=== PATIENT | female | born 1980 | race Caucasian/White ===

== ENCOUNTER 2017-07-26 09:44 | Emergency (ER) | payer MEDICARE, OTHER ==
[2017-07-26 09:56] VITALS: RESP 18
[2017-07-26 10:16] LABS: Appearance,Urine Cloudy (Clear); Bilirubin,Urine Negative (Negative); Blood,Urine Negative (Negative); Color,Urine Yellow; Glucose,Urine (UA) Negative (Negative); Ketones,Urine Negative (Negative); Leukocyte Esterase,Urine Large (Negative); Mucus,Urine Moderate /hpf; Nitrite,Urine Negative (Negative); PH, Urine 5.5 (5.0-8.0); Protein,Urine Negative (Negative); RBC,Urine 1 /hpf (0-5); Squamous Epithelial Cell,Urine 3 /hpf (0-4); WBC,Urine 20 /hpf (0-5)
--- NOTE | 2017-07-26 10:32 | ED ---
Female Urogenital HPI - General Chief complaint: Urogenital Stated complaint: female Time Seen by Provider: 07/26/17 10:11 Source: family Mode of arrival: ambulatory Limitations: no limitations - History of Present Illness Initial comments: 36-year-old female patient presents the emergency department today for evaluation of pelvic pain, low back pain, and vaginal burning. Patient states that this is going on for approximately one month. Patient states that she was in to urgent care approximately a week ago and was diagnosed with a possible urinary tract infection. They later called her and told her her culture was negative and a stop take an antibiotic. Patient states that she has continued to have symptoms including dysuria and frequency so she continued the antibiotic. Patient denies any vaginal bleeding or discharge. She denies any nausea or vomiting. Denies any constipation or diarrhea. Patient states that she hasn't been sexually active since February. Patient does have a history of hysterectomy with mesh placed for prolapse. Patient denies any recent rash, shortness breath, chest pain, nausea, numbness, tingling, dizziness, weakness, hematuria, dysuria, urinary urgency, urinary frequency, headache, visual changes , or any other complaints. - Related Data Previous Rx's Medication Instructions Recorded Ibuprofen [Motrin] 600 mg PO Q8HR PRN #30 tab 07/26/17 Allergies Allergy/AdvReac Type Severity Reaction Status Date / Time codeine Allergy Unknown Verified 07/26/17 09:49 Review of Systems ROS Statement: Those systems with pertinent positive or pertinent negative responses have been documented in the HPI. ROS Other: All systems not noted in ROS Statement are negative. Past Medical History Additional Past Medical History / Comment(s): lyme disease, degenerative disc disease, hiatal hernia, IBS History of Any Multi-Drug Resistant Organisms: None Reported Past Surgical History: Back Surgery, Cholecystectomy, Hysterectomy, Orthopedic Surgery, Tonsillectomy Additional Past Surgical History / Comment(s): left third didgit, left knee Past Psychological History: Depression Smoking Status: Current every day smoker Past Alcohol Use History: None Reported Past Drug Use History: None Reported General Exam Limitations: no limitations General appearance: alert, in no apparent distress, other (Physical well- developed, well-nourished adult female patient in no acute distress. Vital signs upon presentation are temperature 97.1F, pulse 112, respirations 18, blood pressure 127/99, pulse ox 98% on room air.) Eye exam: Present: normal appearance, PERRL, EOMI. Absent: scleral icterus, conjunctival injection, periorbital swelling ENT exam: Present: normal exam, normal oropharynx, mucous membranes moist Respiratory exam: Present: normal lung sounds bilaterally. Absent: respiratory distress, wheezes, rales, rhonchi, stridor Cardiovascular Exam: Present: normal rhythm, tachycardia, normal heart sounds. Absent: systolic murmur, diastolic murmur, rubs, gallop, clicks GI/Abdominal exam: Present: soft, normal bowel sounds. Absent: distended, tenderness, guarding, rebound, rigid External exam: Present: erythema. Absent: normal external exam Speculum exam: Present: vaginal discharge (Thin white) By manual exam: Present: adnexal tenderness, other (Absent cervix) Back exam: Present: normal inspection. Absent: CVA tenderness (R), CVA tenderness (L) Neurological exam: Present: alert, oriented X3, CN II-XII intact Psychiatric exam: Present: normal affect, normal mood Skin exam: Present: warm, dry, intact, normal color. Absent: rash Course Vital Signs 07/26/17 09:49 Temperature 97.1 F L Pulse Rate 112 H Respiratory 18 Rate Blood Pressure 127/99 O2 Sat by Pulse 98 Oximetry Medical Decision Making - Medical Decision Making 36-year-old female patient presents to the emergency department today for evaluation of pelvic pain and low back pain as well as some vaginal burning. Physical examination was relatively unremarkable. Abdomen was soft and nontender. No CVA tenderness. Speculum and bimanual examination did reveal some bilateral adnexal tenderness, and a small amount of thin white discharge. No odor was noted. Labs reviewed and did reveal possible urinary tract infection with cloudy appearance, large leukocyte esterase, 20 white blood cells , moderate mucus. Patient does have Cipro at home, I urged her to continue taking this. Urine culture will be performed. Recent vaginal cultures. She was informed regarding ultrasound results and instructed to follow-up with OB/ [facility]IENT SOLUTIONS SPECIALIST for further evaluation. She was given referral. Return parameters discussed in detail. She verbalizes understanding and agrees this plan. - Lab Data Result diagrams: 07/26/17 10:40 07/26/17 10:40 Lab Results 07/26/17 07/26/17 07/26/17 Range/Units 10:00 10:40 10:40 WBC 7.5 (3.8-10.6) k/uL RBC 4.48 (3.80-5.40) m/uL Hgb 14.0 (11.4-16.0) gm/dL Hct 41.4 (34.0-46.0) % MCV 92.5 (80.0-100.0) fL MCH 31.3 (25.0-35.0) pg MCHC 33.8 (31.0-37.0) g/dL RDW 12.3 (11.5-15.5) % Plt Count 172 (150-450) k/uL Neutrophils % 52 % Lymphocytes % 35 % Monocytes % 4 % Eosinophils % 6 % Basophils % 0 % Neutrophils # 3.9 (1.3-7.7) k/uL Lymphocytes # 2.7 (1.0-4.8) k/uL Monocytes # 0.3 (0-1.0) k/uL Eosinophils # 0.5 (0-0.7) k/uL Basophils # 0.0 (0-0.2) k/uL Sodium 142 (137-145) mmol/L Potassium 3.5 (3.5-5.1) mmol/L Chloride 108 H (98-107) mmol/L Carbon Dioxide 23 (22-30) mmol/L Anion Gap 11 mmol/L BUN 6 L (7-17) mg/dL Creatinine 0.48 L (0.52-1.04) mg/dL Est GFR (CKD-EPI)AfAm >90 (>60 ml/min/1.73 sqM) Est GFR (CKD-EPI)NonAf >90 (>60 ml/min/1.73 sqM) Glucose 95 (74-99) mg/dL Calcium 9.3 (8.4-10.2) mg/dL Total Bilirubin 0.5 (0.2-1.3) mg/dL AST 13 L (14-36) U/L ALT 20 (9-52) U/L Alkaline Phosphatase 63 (38-126) U/L Total Protein 6.7 (6.3-8.2) g/dL Albumin 4.0 (3.5-5.0) g/dL Amylase 53 (30-110) U/L Lipase 119 (23-300) U/L Urine Color Yellow Urine Appearance Cloudy H (Clear) Urine pH 5.5 (5.0-8.0) Ur Specific [place] 1.010 (1.001-1.035) Urine Protein Negative (Negative) Urine Glucose (UA) Negative (Negative) Urine Ketones Negative (Negative) Urine Blood Negative (Negative) Urine Nitrite Negative (Negative) Urine Bilirubin Negative (Negative) Urine Urobilinogen 2.0 (<2.0) mg/dL Ur Leukocyte Esterase Large H (Negative) Urine RBC 1 (0-5) /hpf Urine WBC 20 H (0-5) /hpf Ur Squamous Epith Cells 3 (0-4) /hpf Urine Mucus Moderate H (None) /hpf - Radiology Data Radiology results: report reviewed, image reviewed Ultrasound of the pelvis was obtained. Report was reviewed in its entirety. Impression by Dr. Lerner shows status post hysterectomy. Probable cystic change in the left ovary. Abnormal appearance of the right ovary. Short-term follow-up is recommended. Disposition Clinical Impression: Urinary tract infection, Pelvic pain, Ovarian cyst Disposition: HOME SELF-CARE Condition: Good Instructions: Ovarian Cyst (ED), Urinary Tract Infection in Women (ED), Pelvic Pain in Women (ED) Additional Instructions: Take anti-inflammatory pain medication. Follow-up with CONSTRUCTION SAFETY MANAGER for further evaluation. Return here immediately for any new, worsening, or concerning symptoms. Prescriptions: Ibuprofen [Motrin] 600 mg PO Q8HR PRN #30 tab PRN Reason: Pain Is patient prescribed a controlled substance at d/c from ED?: No Referrals: None,Stated [Primary Care Provider] - 1-2 days Sanjana Reinoso DO [Doctor of Osteopathic Medicine] - 1-2 days Time of Disposition: 12:10
[2017-07-26 10:50] LABS: Basophils % (A) 0 %; Eosinophils # (A) 0.5 k/uL (0-0.7); Eosinophils % (A) 6 %; HCT 41.4 % (34.0-46.0); Lymphocytes # (A) 2.7 k/uL (1.0-4.8); Lymphocytes % (A) 35 %; MCH 31.3 pg (25.0-35.0); MCHC 33.8 g/dL (31.0-37.0); MCV 92.5 fL (80.0-100.0); Mean Platelet Volume 8.5; Monocytes # (A) 0.3 k/uL (0-1.0); Monocytes % (A) 4 %; Neutrophils # (A) 3.9 k/uL (1.3-7.7); Neutrophils % (A) 52 %; Platelet Count 172 k/uL (150-450); RBC 4.48 m/uL (3.80-5.40); RDW 12.3 % (11.5-15.5); WBC 7.5 k/uL (3.8-10.6)
[2017-07-26 11:05] LABS: ALT 20 U/L (9-52); AST 13 U/L (14-36); Alkaline Phosphatase 63 U/L (38-126); Amylase 53 U/L (30-110); Anion Gap 11 mmol/L; Blood Urea Nitrogen 6 mg/dL (7-17); Calcium 9.3 mg/dL (8.4-10.2); Carbon Dioxide 23 mmol/L (22-30); Chloride 108 mmol/L (98-107); Glucose 95 mg/dL (74-99); Lipase 119 U/L (23-300); Potassium 3.5 mmol/L (3.5-5.1); Sodium 142 mmol/L (137-145); Total Bilirubin 0.5 mg/dL (0.2-1.3); Total Protein 6.7 g/dL (6.3-8.2)
--- NOTE | 2017-07-26 11:34 | US ---
EXAMINATION TYPE: US transvaginal DATE OF EXAM: 07/26/2017 NONE COMPARISON: CLINICAL HISTORY: Pain. TECHNIQUE: Transvaginal (TV) and Transabdominal (TA) . Transabdominal sonographic images of the pelvis were acquired. Transvaginal sonographic images were medically necessary to better assess the following anatomy: Bilateral ovaries Date of LMP: 4 years ago EXAM MEASUREMENTS: Uterus: Surgically absent Endometrial Stripe: Surgically absent Right Ovary: cm Left Ovary: cm Limited due to overlying bowel gas and bladder fill. 1. Uterus: Surgically absent 2. Endometrium: Surgically absent 3. Right Ovary: Irregular hypoechoic area measuring approximately 1.0 x 0.8 x 1.3 cm possible involuting cyst/follicle versus other etiology 4. Left Ovary: 2 hypoechoic areas noted 1st one measuring approximately 1.5 x 1.5 x 1.3 cm and the second measuring approximately 1.8 x 1.7 x 2.2 cm possible cysts versus follicles versus other etiology Spectral, color and waveform doppler imaging shows good arterial and venous flow within the ovaries; there is no evidence for ovarian torsion. 5. Bilateral Adnexa: wnl 6. Posterior cul-de-sac: wnl IMPRESSION: 1. STATUS POST HYSTERECTOMY. 2. PROBABLE CYSTIC CHANGE IN THE LEFT OVARY. 3. ABNORMAL APPEARANCE OF THE RIGHT OVARY. SHORT-TERM FOLLOW-UP WOULD BE RECOMMENDED. MTDD
[2017-07-26] MEDS ORDERED: KETOROLAC 30 MG/ML 1 ML VIAL IVP STA (12:14)
[2017-07-26 12:32] VITALS: BP 128/76; PULSE 91; TEMP 97.3
[2017-07-29 07:42] LABS: N. gonorrhoeae,PCR Negative (Neg,Equiv); Neisseria Source Vagina
[2017-07-29 07:46] LABS: C. trachomatis,PCR Negative (Neg,Equiv); Chlamydia trachomatis Source Vagina
== END 2017-07-26 12:25 | disposition home or self-care (01) ==
LOC: EC 09:44
DX: N39.0 Urinary tract infection, site not specified (principal); N83.209 Unspecified ovarian cyst, unspecified side; F17.200 Nicotine dependence, unspecified, uncomplicated; Z88.5 Allergy status to narcotic agent; Z90.710 Acquired absence of both cervix and uterus; Z90.49 Acquired absence of other specified parts of digestive tract
CPT/HCPCS: 36415; 76830; 76856; 80053; 81001; 82150; 83690; 85025; 87070; 87086; 87205; 87491; 87591; 87808; 93976; 99284

== ENCOUNTER 2017-07-29 18:40 | Emergency (ER) | payer MEDICARE, OTHER ==
[2017-07-29 19:44] LABS: Basophils % (A) 0 %; Eosinophils # (A) 0.3 k/uL (0-0.7); Eosinophils % (A) 4 %; HCT 38.7 % (34.0-46.0); HGB 13.3 gm/dL (11.4-16.0); Lymphocytes # (A) 1.9 k/uL (1.0-4.8); Lymphocytes % (A) 23 %; MCH 31.1 pg (25.0-35.0); MCHC 34.3 g/dL (31.0-37.0); MCV 90.8 fL (80.0-100.0); Monocytes # (A) 0.3 k/uL (0-1.0); Monocytes % (A) 4 %; Neutrophils # (A) 5.6 k/uL (1.3-7.7); Neutrophils % (A) 68 %; Platelet Count 180 k/uL (150-450); RBC 4.26 m/uL (3.80-5.40); RDW 12.4 % (11.5-15.5); WBC 8.2 k/uL (3.8-10.6)
[2017-07-29 19:49] LABS: Appearance,Urine Cloudy (Clear); Bacteria,Urine Rare /hpf; Bilirubin,Urine Negative (Negative); Blood,Urine Negative (Negative); Color,Urine Light Yellow; Glucose,Urine (UA) Negative (Negative); Ketones,Urine 1+ (Negative); Leukocyte Esterase,Urine Large (Negative); Mucus,Urine Occasional /hpf; Nitrite,Urine Negative (Negative); Protein,Urine Negative (Negative); RBC,Urine 5 /hpf (0-5); Specific Gravity,Urine 1.002 (1.001-1.035); Squamous Epithelial Cell,Urine 8 /hpf (0-4); Urobilinogen,Urine <2.0 mg/dL (<2.0); WBC,Urine 4 /hpf (0-5)
[2017-07-29] MEDS ORDERED: METOCLOPRAMIDE 5 MG/ML 2 ML VIAL IVP STA (19:53)
[2017-07-29] MEDS ORDERED: diphenhydrAMINE 50 MG/ML 1 ML VIAL IVP STA (19:53)
[2017-07-29] MEDS ORDERED: SODIUM CHLORIDE 0.9% 1,000 ML IV STA (19:53)
[2017-07-29 19:57] LABS: ALT 19 U/L (9-52); AST 13 U/L (14-36); Albumin 3.9 g/dL (3.5-5.0); Alkaline Phosphatase 67 U/L (38-126); Anion Gap 12 mmol/L; Blood Urea Nitrogen 9 mg/dL (7-17); Calcium 9.4 mg/dL (8.4-10.2); Carbon Dioxide 22 mmol/L (22-30); Chloride 109 mmol/L (98-107); Glucose 101 mg/dL (74-99); Potassium 3.4 mmol/L (3.5-5.1); Sodium 143 mmol/L (137-145); Total Bilirubin 0.5 mg/dL (0.2-1.3); Total Protein 6.5 g/dL (6.3-8.2)
--- NOTE | 2017-07-29 20:10 | ED ---
General Adult HPI - General Chief complaint: Dizziness Stated complaint: Numbness All Over Source: patient, RN notes reviewed, old records reviewed Mode of arrival: ambulatory Limitations: no limitations - History of Present Illness Initial comments: Patient 36-year-old female presenting to the emergency room today with chief complaint of numbness tingling sensation. She states she was at work earlier today felt like maybe she was getting dehydrated was very hot. She states was hot in the office as it is hot outside and they forgot to turn the heat off. She states that she try to put some water cold washcloth. She states she was sent home. She states while driving home she began having numbness and tingling throughout her body. She states that she fell which couldn't move. She states she did sign out waiting room prior to being seen. She states that she is feeling better at this time numbness tingling is improving still feeling some to her hands and feet bilaterally. Patient does admit that she was seen here recently for some lower abdominal pain which she states felt nauseous earlier today. Patient currently on antibiotics for UTI. Patient denies any other complaints at this time. Patient denies any recent fever, chills, shortness of breath, chest pain, dysuria or hematuria, constipation or diarrhea , headaches or visual changes, or any other complaints. - Related Data Home Medications Medication Instructions Recorded Confirmed Naproxen [Naprosyn] 750 mg PO Q12HR 07/29/17 07/29/17 Previous Rx's Medication Instructions Recorded metroNIDAZOLE [Flagyl] 500 mg PO BID #14 tab 07/29/17 Allergies Allergy/AdvReac Type Severity Reaction Status Date / Time codeine Allergy Unknown Verified 07/29/17 20:03 Review of Systems ROS Statement: Those systems with pertinent positive or pertinent negative responses have been documented in the HPI. ROS Other: All systems not noted in ROS Statement are negative. Past Medical History Additional Past Medical History / Comment(s): lyme disease, degenerative disc disease, hiatal hernia, IBS History of Any Multi-Drug Resistant Organisms: None Reported Past Surgical History: Back Surgery, Cholecystectomy, Hysterectomy, Orthopedic Surgery, Tonsillectomy Additional Past Surgical History / Comment(s): left third didgit, left knee Past Psychological History: Depression Smoking Status: Current every day smoker Past Alcohol Use History: None Reported Past Drug Use History: None Reported General Exam - General Exam Comments Initial Comments: General: The patient is awake and alert, in no distress, and does not appear acutely ill. Eye: Pupils are equal, round and reactive to light, extra-ocular movements are intact. No nystagmus. There is normal conjunctiva bilaterally. No signs of icterus. Ears, nose, mouth and throat: There are moist mucous membranes and no oral lesions. Neck: The neck is supple, there is no tenderness or JVD. Cardiovascular: There is a regular rate and rhythm. No murmur, rub or gallop is appreciated. Respiratory: Lungs are clear to auscultation, respirations are non-labored, breath sounds are equal. No wheezes, stridor, rales, or rhonchi. Gastrointestinal: Soft, non-distended, non-tender abdomen without masses or organomegaly noted. There is no rebound or guarding present. No CVA tenderness. Bowel sounds are unremarkable. Musculoskeletal: Normal ROM, no tenderness. Strength 5/5. Sensation intact. Pulses equal bilaterally 2+. Neurological: A&O x 3. CN II-XII intact, There are no obvious motor or sensory deficits. Coordination appears grossly intact. Speech is normal. Skin: Skin is warm and dry and no rashes or lesions are noted. Psychiatric: Cooperative, appropriate mood & affect, normal judgment. Limitations: no limitations Course Vital Signs 07/29/17 07/29/17 18:42 20:09 Temperature 97.5 F L Pulse Rate 96 67 Respiratory 26 H 18 Rate Blood Pressure 101/60 120/67 O2 Sat by Pulse 99 97 Oximetry EKG Findings - EKG Comments: EKG Findings:: EKG performed at 1922: Shows normal sinus rhythm at 83 beats per minute. NH interval 232. QRS 88. QT/QTc is 390/458. No acute changes. Medical Decision Making - Medical Decision Making Patient reexamined at this time shows no signs of distress. She states the emergency room. Patient's labs been reviewed. Patient's cultures and labs from previous visit were reviewed showing positive Trichomonas and a positive vaginal culture for Gardnerella vaginalis. Patient will be placed on Flagyl 500 mg twice a day for 7 days. Patient is advised to follow back up with her OB /[facility]ER. Patient advised to return if any symptoms increase worsen or for any concerns. - Lab Data Result diagrams: 07/29/17 19:30 07/29/17 19:30 Lab Results 07/29/17 07/29/17 07/29/17 Range/Units 19:30 19:30 19:30 WBC 8.2 (3.8-10.6) k/uL RBC 4.26 (3.80-5.40) m/uL Hgb 13.3 (11.4-16.0) gm/dL Hct 38.7 (34.0-46.0) % MCV 90.8 (80.0-100.0) fL MCH 31.1 (25.0-35.0) pg MCHC 34.3 (31.0-37.0) g/dL RDW 12.4 (11.5-15.5) % Plt Count 180 (150-450) k/uL Neutrophils % 68 % Lymphocytes % 23 % Monocytes % 4 % Eosinophils % 4 % Basophils % 0 % Neutrophils # 5.6 (1.3-7.7) k/uL Lymphocytes # 1.9 (1.0-4.8) k/uL Monocytes # 0.3 (0-1.0) k/uL Eosinophils # 0.3 (0-0.7) k/uL Basophils # 0.0 (0-0.2) k/uL Sodium 143 (137-145) mmol/L Potassium 3.4 L (3.5-5.1) mmol/L Chloride 109 H (98-107) mmol/L Carbon Dioxide 22 (22-30) mmol/L Anion Gap 12 mmol/L BUN 9 (7-17) mg/dL Creatinine 0.43 L (0.52-1.04) mg/dL Est GFR (CKD-EPI)AfAm >90 (>60 ml/min/1.73 sqM) Est GFR (CKD-EPI)NonAf >90 (>60 ml/min/1.73 sqM) Glucose 101 H (74-99) mg/dL Calcium 9.4 (8.4-10.2) mg/dL Total Bilirubin 0.5 (0.2-1.3) mg/dL AST 13 L (14-36) U/L ALT 19 (9-52) U/L Alkaline Phosphatase 67 (38-126) U/L CK-MB (CK-2) <0.2 (0.0-2.4) ng/mL Troponin I <0.012 (0.000-0.034) ng/mL Total Protein 6.5 (6.3-8.2) g/dL Albumin 3.9 (3.5-5.0) g/dL Urine Color Urine Appearance (Clear) Urine pH (5.0-8.0) Ur Specific [place] (1.001-1.035) Urine Protein (Negative) Urine Glucose (UA) (Negative) Urine Ketones (Negative) Urine Blood (Negative) Urine Nitrite (Negative) Urine Bilirubin (Negative) Urine Urobilinogen (<2.0) mg/dL Ur Leukocyte Esterase (Negative) Urine RBC (0-5) /hpf Urine WBC (0-5) /hpf Ur Squamous Epith Cells (0-4) /hpf Urine Bacteria (None) /hpf Urine Mucus (None) /hpf 07/29/17 Range/Units 19:30 WBC (3.8-10.6) k/uL RBC (3.80-5.40) m/uL Hgb (11.4-16.0) gm/dL Hct (34.0-46.0) % MCV (80.0-100.0) fL MCH (25.0-35.0) pg MCHC (31.0-37.0) g/dL RDW (11.5-15.5) % Plt Count (150-450) k/uL Neutrophils % % Lymphocytes % % Monocytes % % Eosinophils % % Basophils % % Neutrophils # (1.3-7.7) k/uL Lymphocytes # (1.0-4.8) k/uL Monocytes # (0-1.0) k/uL Eosinophils # (0-0.7) k/uL Basophils # (0-0.2) k/uL Sodium (137-145) mmol/L Potassium (3.5-5.1) mmol/L Chloride (98-107) mmol/L Carbon Dioxide (22-30) mmol/L Anion Gap mmol/L BUN (7-17) mg/dL Creatinine (0.52-1.04) mg/dL Est GFR (CKD-EPI)AfAm (>60 ml/min/1.73 sqM) Est GFR (CKD-EPI)NonAf (>60 ml/min/1.73 sqM) Glucose (74-99) mg/dL Calcium (8.4-10.2) mg/dL Total Bilirubin (0.2-1.3) mg/dL AST (14-36) U/L ALT (9-52) U/L Alkaline Phosphatase (38-126) U/L CK-MB (CK-2) (0.0-2.4) ng/mL Troponin I (0.000-0.034) ng/mL Total Protein (6.3-8.2) g/dL Albumin (3.5-5.0) g/dL Urine Color Light Yellow Urine Appearance Cloudy H (Clear) Urine pH 8.0 (5.0-8.0) Ur Specific [place] 1.002 (1.001-1.035) Urine Protein Negative (Negative) Urine Glucose (UA) Negative (Negative) Urine Ketones 1+ H (Negative) Urine Blood Negative (Negative) Urine Nitrite Negative (Negative) Urine Bilirubin Negative (Negative) Urine Urobilinogen <2.0 (<2.0) mg/dL Ur Leukocyte Esterase Large H (Negative) Urine RBC 5 (0-5) /hpf Urine WBC 4 (0-5) /hpf Ur Squamous Epith Cells 8 H (0-4) /hpf Urine Bacteria Rare H (None) /hpf Urine Mucus Occasional H (None) /hpf Disposition Clinical Impression: Bacterial vaginosis, Trichomonas contact, Paresthesia Disposition: HOME SELF-CARE Condition: Good Instructions: Bacterial Vaginosis (ED) Additional Instructions: Please use medication as discussed. Please follow-up with MACHINE TOOL DRESSER/family doctor in the next 2 days. Please return to emergency room if the symptoms increase or worsen or for any other concerns. Prescriptions: metroNIDAZOLE [Flagyl] 500 mg PO BID #14 tab Is patient prescribed a controlled substance at d/c from ED?: No Referrals: Negrita Domínguez MD [Primary Care Provider] - 1-2 days Time of Disposition: 20:50
[2017-07-29 20:11] VITALS: RESP 18
[2017-07-29 20:17] LABS: Creatine Kinase MB <0.2 ng/mL (0.0-2.4); Troponin I <0.012 ng/mL (0.000-0.034)
[2017-07-29 21:03] VITALS: BP 112/56; PULSE 80; TEMP 97.8
== END 2017-07-29 21:03 | disposition home or self-care (01) ==
LOC: EC 18:40
DX: N76.0 Acute vaginitis (principal); R20.2 Paresthesia of skin; Z20.2 Contact with and (suspected) exposure to infections with a predominantly sexual mode of transmission; F17.200 Nicotine dependence, unspecified, uncomplicated; Z79.1 Long term (current) use of non-steroidal anti-inflammatories (NSAID); Z88.5 Allergy status to narcotic agent
CPT/HCPCS: 36415; 93005; 80053; 82553; 84484; 85025; 81001; 99284; 96374; 96375; 96361; J1200; J2765

== ENCOUNTER 2017-09-27 14:22 | Emergency (ER) | payer OTHER, MEDICARE ==
[2017-09-27] MEDS ORDERED: fentaNYL (PF) 50 MCG/ML 2 ML AMP IVP STA (14:59)
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
[2017-09-27 15:23] LABS: Basophils % (A) 1 %; Eosinophils # (A) 0.4 k/uL (0-0.7); Eosinophils % (A) 6 %; HCT 38.6 % (34.0-46.0); HGB 13.1 gm/dL (11.4-16.0); Lymphocytes # (A) 2.4 k/uL (1.0-4.8); Lymphocytes % (A) 36 %; MCH 31.3 pg (25.0-35.0); MCHC 33.9 g/dL (31.0-37.0); MCV 92.2 fL (80.0-100.0); Mean Platelet Volume 8.7; Monocytes # (A) 0.4 k/uL (0-1.0); Monocytes % (A) 6 %; Neutrophils # (A) 3.3 k/uL (1.3-7.7); Neutrophils % (A) 50 %; Platelet Count 150 k/uL (150-450); RBC 4.19 m/uL (3.80-5.40); RDW 13.1 % (11.5-15.5); WBC 6.5 k/uL (3.8-10.6)
[2017-09-27 15:33] LABS: Anion Gap 9 mmol/L; Blood Urea Nitrogen 15 mg/dL (7-17); Calcium 9.2 mg/dL (8.4-10.2); Carbon Dioxide 21 mmol/L (22-30); Chloride 111 mmol/L (98-107); Glucose 94 mg/dL (74-99); Potassium 3.5 mmol/L (3.5-5.1); Sodium 141 mmol/L (137-145)
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
[2017-09-27 17:19] VITALS: BP 104/68; PULSE 79; RESP 18; TEMP 98.2
== END 2017-09-27 17:32 | disposition home or self-care (01) ==
LOC: EC 14:22
DX: S16.1XXA Strain of muscle, fascia and tendon at neck level, initial encounter (principal); F17.200 Nicotine dependence, unspecified, uncomplicated; Z98.1 Arthrodesis status; Z88.5 Allergy status to narcotic agent; Z79.1 Long term (current) use of non-steroidal anti-inflammatories (NSAID); V49.50XA Passenger injured in collision with unspecified motor vehicles in traffic accident, initial encounter; W22.12XA Striking against or struck by front passenger side automobile airbag, initial encounter; Y99.0 Civilian activity done for income or pay; Y92.410 Unspecified street and highway as the place of occurrence of the external cause
CPT/HCPCS: 99284; 96374; 36415; 80048; 85025; 81025; 71046; 70490; 70450; J3010

== ENCOUNTER → 2017-11-11 | Outpatient (CLI) | payer MEDICARE, OTHER ==
--- NOTE | 2017-11-11 13:29 | EST ---
EXERCISE STRESS DATE OF SERVICE: 11/11/2017 AGE: 37 SEX: Female HT: 64 WT: 185 PROTOCOL: TXT STAGE: III DURATION OF EXERCISE: 9 minutes HEART RATE REST: 104 BLOOD PRESSURE REST: 165/106 MAXIMUM HEART RATE ACHIEVED: 144 MAXIMUM BLOOD PRESSURE: 172/57 85% MPHR: 154 100% MPHR: 181 METS: 11.5 INDICATIONS: Chest pain. CLINICAL INFORMATION: STRESS DATA: Heart rate 104, pressure is 165/106 mmHg. Baseline EKG showed sinus mechanism. The patient exercised on the treadmill according to [employer] protocol for a total of 9 minutes and achieved a heart rate of 144, which is about 79% of maximum predicted heart rate. Maximum blood pressure was 172/57 mmHg. Clinically the patient developed chest discomfort in response to exercise. The EKG did not show any significant ST or T-wave abnormalities concerning for ischemia. CONCLUSION: 1. Excellent exercise capacity. 2. Normal EKG in response to exercise to the level of heart rate achieved which is only 79% of maximum predicted heart rate. 3. Overall nondiagnostic exercise treadmill stress test due to the patient not achieving 85% of maximum predicted heart rate. MMODL / IJN: [id number] /
--- NOTE | 2017-11-11 16:07 | ECHOF ---
Referral Reason:R00.2 Palpitations, R42 dizziness and giddiness MEASUREMENTS -------- HEIGHT: 162.6 cm WEIGHT: 83.9 kg BP: 165/106 RVIDd: 2.9 cm (< 3.3) IVSd: 1.1 cm (0.6 - 1.1) LVIDd: 4.6 cm (3.9 - 5.3) LVPWd: 1.0 cm (0.6 - 1.1) IVSs: 1.4 cm LVIDs: 3.2 cm LVPWs: 1.5 cm LA Diam: 3.4 cm (2.7 - 3.8) LAESV Index (A-L): 22.72 ml/m Ao Diam: 3.0 cm (2.0 - 3.7) AV Cusp: 2.1 cm (1.5 - 2.6) EPSS: 0.4 cm MV E Hal: 0.67 m/s MV DecT: 140 ms MV A Hal: 0.51 m/s MV E/A Ratio: 1.30 MV EF SLOPE: 106.67 mm/s (70 - 150) MV EXCURSION: 1.87 cm (> 18.000) FINDINGS -------- Sinus rhythm. This was a technically excellent study. The left ventricular size is normal. There is borderline concentric left ventricular hypertrophy. Overall left ventricular systolic function is normal with, an EF between 60 - 65 %. The right ventricle is normal in size. Normal LA size by volume 22+/-6 ml/m2. The right atrium is normal in size. The aortic valve is trileaflet and appears structurally normal. The mitral valve is normal. The tricuspid valve appears structurally normal. There is no pulmonic regurgitation present. The aortic root size is normal. Normal inferior vena cava with normal inspiratory collapse consistent with estimated right atrial pre ssure of 5 mmHg. There is no pericardial effusion. CONCLUSIONS -------- 1. Sinus rhythm. 2. This was a technically excellent study. 3. The left ventricular size is normal. 4. There is borderline concentric left ventricular hypertrophy. 5. Overall left ventricular systolic function is normal with, an EF between 60 - 65 %. 6. The right ventricle is normal in size. 7. Normal LA size by volume 22+/-6 ml/m2. 8. The right atrium is normal in size. 9. The aortic valve is trileaflet and appears structurally normal. 10. The mitral valve is normal. 11. The tricuspid valve appears structurally normal. 12. There is no pulmonic regurgitation present. 13. The aortic root size is normal. 14. Normal inferior vena cava with normal inspiratory collapse consistent with estimated right atrial pressure of 5 mmHg. 15. There is no pericardial effusion. HEAD GRINDER: HERBERTH Ya
== END ==
LOC: RADNMMAIN 10:57
PROVIDERS: ATTEND Physician Assistant
DX: I51.7 Cardiomegaly (principal); R42 Dizziness and giddiness; R00.2 Palpitations
CPT/HCPCS: 93017; 93306

== ENCOUNTER 2017-12-15 12:08 | Emergency (ER) | payer MEDICARE, OTHER ==
[2017-12-15] MEDS ORDERED: KETOROLAC 60 MG/2 ML VIAL IM STA (12:45)
--- NOTE | 2017-12-15 12:48 | ED ---
General Adult HPI - General Chief complaint: Back Pain/Injury Stated complaint: LOW BACK PAIN, SHOOTING INTO LEFT LEG AND BUTTOCKS Time Seen by Provider: 12/15/17 12:10 Source: patient, RN notes reviewed Mode of arrival: ambulatory Limitations: no limitations - History of Present Illness Initial comments: This is a 37-year-old female presents emergency Department complaining that she has which she believes to be sciatica. Patient states she's had in the past. Patient states the pain is in the left lower back and radiates down the back of her leg to her feet. Patient states his been ongoing now for a couple of days. Patient denies any numbness or weakness. Patient has any injury or trauma. Patient states movement definitely exacerbates the pain. Patient denies any urinary incontinence or urinary retention. Patient denies any recent fever chills. Patient denies any dysuria hematuria but does complain that at night she seems to have urinary frequency. Patient states palpating on the back does not seem to increase the pain. Patient denies any abdominal pain patient denies nausea vomiting diarrhea. - Related Data Home Medications Medication Instructions Recorded Confirmed Naproxen [Naprosyn] 750 mg PO Q12HR 07/29/17 07/29/17 Previous Rx's Medication Instructions Recorded metroNIDAZOLE [Flagyl] 500 mg PO BID #14 tab 07/29/17 Acetaminophen [Tylenol] 1,000 mg PO Q4-6H PRN #24 tab 09/27/17 predniSONE 40 mg PO DAILY #8 tab 12/15/17 Allergies Allergy/AdvReac Type Severity Reaction Status Date / Time codeine Allergy Unknown Verified 12/15/17 12:24 Review of Systems ROS Statement: Those systems with pertinent positive or pertinent negative responses have been documented in the HPI. ROS Other: All systems not noted in ROS Statement are negative. Past Medical History Additional Past Medical History / Comment(s): lyme disease, degenerative disc disease, hiatal hernia, IBS History of Any Multi-Drug Resistant Organisms: None Reported Past Surgical History: Back Surgery, Cholecystectomy, Hysterectomy, Orthopedic Surgery, Tonsillectomy Additional Past Surgical History / Comment(s): left third didgit, left knee Past Psychological History: Depression Smoking Status: Current every day smoker Past Alcohol Use History: None Reported Past Drug Use History: None Reported General Exam - General Exam Comments Initial Comments: GENERAL: Patient is well-developed and well-nourished. Patient is nontoxic and well- hydrated and is in mild distress. ENT: Neck is soft and supple. Neck has full range of motion without eliciting any pain. EYES: The sclera were anicteric and conjunctiva were pink and moist. Extraocular movements were intact and pupils were equal round and reactive to light. Eyelids were unremarkable. ABDOMEN: Soft and nontender with normal bowel sounds. No palpable organomegaly was noted. There is no palpable pulsatile mass. SKIN: Skin is clear with no lesions or rashes and otherwise unremarkable. NEUROLOGIC: Patient is alert and oriented x3. Cranial nerves II through XII are grossly intact. Motor and sensory are also intact. Normal speech, volume and content. Symmetrical smile. Straight leg test is negative bilaterally. Perineum exam is normal. MUSCULOSKELETAL: Normal extremities with adequate strength and full range of motion. No lower extremity swelling or edema. No calf tenderness PSYCHIATRIC: Normal psychiatric evaluation. Limitations: no limitations Course Vital Signs 12/15/17 12:22 Temperature 98.1 F Pulse Rate 94 Respiratory 16 Rate Blood Pressure 116/79 O2 Sat by Pulse 98 Oximetry Medical Decision Making - Lab Data Lab Results 12/15/17 Range/Units 12:25 Urine Color Yellow Urine Appearance Cloudy H (Clear) Urine pH 5.5 (5.0-8.0) Ur Specific [place] 1.019 (1.001-1.035) Urine Protein Negative (Negative) Urine Glucose (UA) Negative (Negative) Urine Ketones Negative (Negative) Urine Blood Negative (Negative) Urine Nitrite Negative (Negative) Urine Bilirubin Negative (Negative) Urine Urobilinogen <2.0 (<2.0) mg/dL Ur Leukocyte Esterase Moderate H (Negative) Urine RBC 2 (0-5) /hpf Urine WBC 1 (0-5) /hpf Ur Squamous Epith Cells 3 (0-4) /hpf Urine Bacteria Rare H (None) /hpf Urine Mucus Few H (None) /hpf Disposition Clinical Impression: Sciatica Disposition: HOME SELF-CARE Condition: Good Instructions: Sciatica (ED) Additional Instructions: Once the patient is done taking the prednisone the patient should take 600 mg of Motrin every 6 hours. Prescriptions: predniSONE 40 mg PO DAILY #8 tab Is patient prescribed a controlled substance at d/c from ED?: No Referrals: Bryant Russell PAC [REFERRING] - 1-2 days Time of Disposition: 13:29
[2017-12-15 12:49] LABS: Appearance,Urine Cloudy (Clear); Bacteria,Urine Rare /hpf; Bilirubin,Urine Negative (Negative); Blood,Urine Negative (Negative); Color,Urine Yellow; Glucose,Urine (UA) Negative (Negative); Ketones,Urine Negative (Negative); Leukocyte Esterase,Urine Moderate (Negative); Mucus,Urine Few /hpf; Nitrite,Urine Negative (Negative); PH, Urine 5.5 (5.0-8.0); Protein,Urine Negative (Negative); RBC,Urine 2 /hpf (0-5); Specific Gravity,Urine 1.019 (1.001-1.035); Squamous Epithelial Cell,Urine 3 /hpf (0-4); Urobilinogen,Urine <2.0 mg/dL (<2.0); WBC,Urine 1 /hpf (0-5)
[2017-12-15 13:44] VITALS: BP 121/67; PULSE 91; RESP 18; TEMP 98.3
== END 2017-12-15 13:43 | disposition home or self-care (01) ==
LOC: EC 12:08
DX: M54.42 Lumbago with sciatica, left side (principal); F17.200 Nicotine dependence, unspecified, uncomplicated; Z88.5 Allergy status to narcotic agent; Z79.1 Long term (current) use of non-steroidal anti-inflammatories (NSAID); Z98.890 Other specified postprocedural states
CPT/HCPCS: 81001; 99283; 96372; J1885

== ENCOUNTER 2018-04-01 15:48 | Emergency (ER) | payer MEDICARE, OTHER ==
[2018-04-01] MEDS ORDERED: cefTRIAXone 250 MG VIAL IM STA (16:52)
[2018-04-01] MEDS ORDERED: AZITHROMYCIN 500 MG TAB PO STA (16:52)
[2018-04-01] MEDS ORDERED: metroNIDAZOLE 500 MG TAB PO STA (16:53)
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
[2018-04-01 17:31] LABS: Appearance,Urine Cloudy (Clear); Bacteria,Urine Moderate /hpf; Bilirubin,Urine Negative (Negative); Blood,Urine Small (Negative); Color,Urine Yellow; Glucose,Urine (UA) Negative (Negative); Ketones,Urine Negative (Negative); Leukocyte Esterase,Urine Large (Negative); Mucus,Urine Few /hpf; Nitrite,Urine Negative (Negative); PH, Urine 5.5 (5.0-8.0); Protein,Urine Trace (Negative); RBC,Urine 19 /hpf (0-5); Specific Gravity,Urine 1.017 (1.001-1.035); Squamous Epithelial Cell,Urine 30 /hpf (0-4); Urobilinogen,Urine <2.0 mg/dL (<2.0)
[2018-04-01 17:34] VITALS: BP 123/82; PULSE 99; RESP 18; TEMP 97
[2018-04-03 13:55] LABS: N. gonorrhoeae,PCR Negative (Neg,Equiv); Neisseria Source Vagina
[2018-04-03 13:57] LABS: C. trachomatis,PCR Negative (Neg,Equiv); Chlamydia trachomatis Source Vagina
== END 2018-04-01 17:35 | disposition home or self-care (01) ==
LOC: EC 15:48
DX: N76.0 Acute vaginitis (principal); R82.998 Other abnormal findings in urine; R35.0 Frequency of micturition; F17.200 Nicotine dependence, unspecified, uncomplicated; Z88.5 Allergy status to narcotic agent; Z90.710 Acquired absence of both cervix and uterus
CPT/HCPCS: 81001; 81025; 87808; 87491; 87591; 87070; 87086; 99283; 96372; J0696; 87205

== ENCOUNTER → 2018-04-01 | Outpatient (CLI) | payer MEDICARE, OTHER ==
--- NOTE | 2018-04-01 16:02 | US ---
EXAMINATION TYPE: US thyroid st tissue head/neck DATE OF EXAM: 04/01/2018 COMPARISON: CT 09/27/2017 CLINICAL HISTORY: R22.1 neck mass left. GLAND SIZE: Right Lobe: 5.1 x 1.3 x 1.4 cm Overall Parenchyma: homogenous Left Lobe: 6.1 x 2.6 x 3.8 cm Overall Parenchyma: homogeneous Isthmus Thickness: 0.3 cm NODULES RIGHT: # of nodules measured on right: 0 LEFT: # of nodules measured on left: 1 1. 3.5 X 1.9 x 3.5 cm hypoechoic solid nodule at the mid pole with well-defined margins; interrupte d peripheral calcification. This nodule is wider than tall and shows intranodular vascularity. ISTHMUS: # of nodules measured in the isthmus: 0 Bilateral neck scanned, no evidence of lymphadenopathy. IMPRESSION: 3.5 cm left thyroid nodule for which fine-needle aspiration is recommended.
== END | disposition home or self-care (01) ==
LOC: RADUSWWP 15:30
PROVIDERS: ATTEND Surgery Plastic and Reconstructive Surgery
DX: E04.1 Nontoxic single thyroid nodule (principal); Z88.5 Allergy status to narcotic agent
CPT/HCPCS: 76536

== ENCOUNTER 2018-07-07 15:17 | Emergency (ER) | payer MEDICARE, OTHER ==
[2018-07-07 16:13] VITALS: BP 117/80; PULSE 103; RESP 16; TEMP 98.6
[2018-07-07] MEDS ORDERED: cefTRIAXone 250 MG VIAL IM STA (17:23)
[2018-07-07] MEDS ORDERED: metroNIDAZOLE 500 MG TAB PO STA (17:23)
[2018-07-07] MEDS ORDERED: AZITHROMYCIN 500 MG TAB PO STA (17:23)
--- NOTE | 2018-07-07 17:54 | ED ---
Female Urogenital HPI - General Chief complaint: Urogenital Stated complaint: Yeast Infection Time Seen by Provider: 07/07/18 17:03 Source: patient Mode of arrival: ambulatory Limitations: no limitations - History of Present Illness Initial comments: 37-year-old female patient presents to the emergency department today for evaluation of vaginal irritation and itching. Patient states that she has had symptoms for the last 4 months. Patient states that she was treated for STDs and Trichomonas in March with one time dosing of azithromycin, Rocephin, and Flagyl. Patient states that symptoms never really went away however they did improve. Patient denies being sexually active since then. She denies any fever or chills. Denies any abdominal pain. States she does have dysuria and urinary frequency. She does have history of hysterectomy including cervix, did retain ovaries. Patient denies any recent rash, shortness breath, chest pain, nausea, vomiting, diarrhea, constipation, back pain, numbness, tingling, dizziness, weakness, headache, visual changes, or any other complaints. - Related Data Previous Rx's Medication Instructions Recorded metroNIDAZOLE [Flagyl] 500 mg PO TID #21 tab 07/07/18 Allergies Allergy/AdvReac Type Severity Reaction Status Date / Time codeine AdvReac STOMACH Verified 07/07/18 17:23 PAIN Review of Systems ROS Statement: Those systems with pertinent positive or pertinent negative responses have been documented in the HPI. ROS Other: All systems not noted in ROS Statement are negative. Past Medical History Additional Past Medical History / Comment(s): lyme disease, degenerative disc disease, hiatal hernia, IBS History of Any Multi-Drug Resistant Organisms: None Reported Past Surgical History: Back Surgery, Cholecystectomy, Hysterectomy, Orthopedic Surgery, Tonsillectomy Additional Past Surgical History / Comment(s): left third didgit, left knee Past Psychological History: Depression Smoking Status: Current every day smoker Past Alcohol Use History: None Reported Past Drug Use History: None Reported General Exam Limitations: no limitations General appearance: alert, in no apparent distress, other (Physical well- developed, well-nourished adult female patient in no acute distress. Vital signs upon presentation are temperature 98.6F, pulse 103, respirations 16, blood pressure 117/80, pulse ox 98% on room air.) Eye exam: Present: normal appearance, PERRL, EOMI. Absent: scleral icterus, conjunctival injection, periorbital swelling ENT exam: Present: normal exam, normal oropharynx, mucous membranes moist Respiratory exam: Present: normal lung sounds bilaterally. Absent: respiratory distress, wheezes, rales, rhonchi, stridor Cardiovascular Exam: Present: regular rate, normal rhythm, normal heart sounds. Absent: systolic murmur, diastolic murmur, rubs, gallop, clicks GI/Abdominal exam: Present: soft, normal bowel sounds. Absent: distended, tenderness, guarding, rebound, rigid External exam: Present: normal external exam Speculum exam: Present: vaginal discharge (White milky vaginal discharge), other (Cervix is surgically absent. ). Absent: normal speculum exam By manual exam: Present: normal by manual exam. Absent: cervical motion tenderness (Surgically absent cervix), adnexal tenderness Neurological exam: Present: alert, oriented X3, CN II-XII intact Psychiatric exam: Present: normal affect, normal mood Skin exam: Present: warm, dry, intact, normal color. Absent: rash Course Vital Signs 07/07/18 16:10 Temperature 98.6 F Pulse Rate 103 H Respiratory 16 Rate Blood Pressure 117/80 O2 Sat by Pulse 98 Oximetry Medical Decision Making - Medical Decision Making 37-year-old female patient presents to the emergency department today for blas luation of genital itching and vaginal discharge. Physical examination did reveal thinnish white discharge. No adnexal tenderness. No fever or chills. Abdomen is soft and nontender. Urinalysis showed no evidence for UTI however Trichomonas test was positive. Patient will be treated with the prolonged dosing of Flagyl as she did complete single dosage in March which did not successfully treat the infection. Patient has had hysterectomy including cervix. She'll be discharged to follow-up with her primary care physician for recheck in 1-2 days. Return parameters were discussed in detail. She verbalizes understanding and agrees with this plan. - Lab Data Lab Results 07/07/18 07/07/18 Range/Units 17:32 17:32 Urine Color Yellow Urine Appearance Clear (Clear) Urine pH 5.5 (5.0-8.0) Ur Specific [place] 1.032 (1.001-1.035) Urine Protein Trace H (Negative) Urine Glucose (UA) Negative (Negative) Urine Ketones Trace H (Negative) Urine Blood Negative (Negative) Urine Nitrite Negative (Negative) Urine Bilirubin Negative (Negative) Urine Urobilinogen 4.0 (<2.0) mg/dL Ur Leukocyte Esterase Small H (Negative) Urine RBC 3 (0-5) /hpf Urine WBC 2 (0-5) /hpf Ur Squamous Epith Cells 4 (0-4) /hpf Urine Mucus Many H (None) /hpf Trichomonas Ag (Rapid) Positive H (Negative) Disposition Clinical Impression: Trichomoniasis of vagina Disposition: HOME SELF-CARE Condition: Good Instructions (If sedation given, give patient instructions): Sexually Transmitted Diseases (ED), Trichomoniasis (ED) Additional Instructions: Complete medication as directed. Follow-up with gynecology. Primary care physician for recheck as soon as possible. Return to the emergency department immediately for any new, worsening, or concerning symptoms. Prescriptions: metroNIDAZOLE [Flagyl] 500 mg PO TID #21 tab Is patient prescribed a controlled substance at d/c from ED?: No Referrals: Kane Oshea MD [STAFF PHYSICIAN] - 1-2 days Time of Disposition: 18:20
[2018-07-07 17:56] LABS: Appearance,Urine Clear (Clear); Bilirubin,Urine Negative (Negative); Blood,Urine Negative (Negative); Color,Urine Yellow; Glucose,Urine (UA) Negative (Negative); Ketones,Urine Trace (Negative); Leukocyte Esterase,Urine Small (Negative); Mucus,Urine Many /hpf; Nitrite,Urine Negative (Negative); PH, Urine 5.5 (5.0-8.0); Protein,Urine Trace (Negative); RBC,Urine 3 /hpf (0-5); Specific Gravity,Urine 1.032 (1.001-1.035); Squamous Epithelial Cell,Urine 4 /hpf (0-4); WBC,Urine 2 /hpf (0-5)
[2018-07-08 14:33] LABS: C. trachomatis,PCR Negative (Neg,Equiv); Chlamydia trachomatis Source Vagina; N. gonorrhoeae,PCR Negative (Neg,Equiv); Neisseria Source Vagina
== END 2018-07-07 18:38 | disposition home or self-care (01) ==
LOC: EC 15:17
DX: A59.01 Trichomonal vulvovaginitis (principal); F17.200 Nicotine dependence, unspecified, uncomplicated; Z87.19 Personal history of other diseases of the digestive system; Z90.49 Acquired absence of other specified parts of digestive tract; Z90.710 Acquired absence of both cervix and uterus; Z98.890 Other specified postprocedural states; Z88.5 Allergy status to narcotic agent
CPT/HCPCS: 81001; 87808; 87491; 87591; 87070; 87205; 99283; 96372; J0696

== ENCOUNTER → 2018-12-22 | Outpatient (CLI) | payer MEDICARE, OTHER ==
--- NOTE | 2018-12-23 09:24 | MM ---
Reason for exam: screening (asymptomatic). Baseline mammogram. History: Patient history of other cancer. Physical Findings: Nurse did not find any significant physical abnormalities on exam. MG 3D Screening Mammo W/Cad Bilateral CC and MLO view(s) were taken. There are scattered fibroglandular densities. Finding: There multiple are circumscribed oval masses in both breasts consistent with lymph nodes. These results were verbally communicated with the patient and result sheet given to the patient on 12/22/18. ASSESSMENT: Incomplete: need additional imaging evaluation, BI-RAD 0 RECOMMENDATION: Special view mammogram of the left breast.
--- NOTE | 2018-12-23 09:25 | MM ---
Reason for exam: additional evaluation requested from abnormal screening. History: Patient history of other cancer. Physical Findings: Breast exam preformed at baseline screening. MG 3D Work Up W/Cad LT LM and spot compression MLO view(s) were taken of the left breast. There are scattered fibroglandular densities. Finding persists. These results were verbally communicated with the patient and result sheet given to the patient on 12/22/18. ASSESSMENT: Incomplete: need additional imaging evaluation, BI-RAD 0 RECOMMENDATION: Ultrasound of the left breast.
--- NOTE | 2018-12-23 09:29 | USB ---
Reason for exam: additional evaluation requested from abnormal screening. History: Patient history of other cancer. US Breast Workup Limited LT Left limited breast ultrasound including focal area of concern, retroareolar and axilla demonstrates a 6mm oval, benign lymph node at the axilla tail and a 12 x 4 x 5mm lobular, solid, hypoechoic lesion at 5 o'clock for which a biopsy is advised. These results were verbally communicated with the patient and result sheet given to the patient on 12/22/18. ASSESSMENT: Suspicious, BI-RAD 4 RECOMMENDATION: Ultrasound core biopsy of the left breast. Called Dr. Johnson with mammographic findings and has scheduled an appointment for the patient for 12/23/18 at 2:[address] Douglas. PRELIMINARY REPORT CALLED AND FAXED TO DR. DOUGLAS ON 12/23/18.
== END | disposition home or self-care (01) ==
LOC: RADMAMWWP 13:11
PROVIDERS: ATTEND Obstetrics & Gynecology
DX: Z12.31 Encounter for screening mammogram for malignant neoplasm of breast (principal); R92.8 Other abnormal and inconclusive findings on diagnostic imaging of breast; N83.202 Unspecified ovarian cyst, left side
CPT/HCPCS: 77067; 77065; 77063; 76642; G0279; 77061

== ENCOUNTER 2018-12-25 16:27 | Emergency (ER) | payer MEDICARE, OTHER ==
[2018-12-25 16:37] VITALS: BP 116/89; PULSE 89; RESP 18; TEMP 98.4
--- NOTE | 2018-12-25 16:52 | ED ---
General Adult HPI - General Chief complaint: Headache Stated complaint: jaw pain Time Seen by Provider: 12/25/18 16:38 Source: patient, RN notes reviewed, old records reviewed Mode of arrival: ambulatory Limitations: no limitations - History of Present Illness Initial comments: 38-year-old female patient past history significant for hysterectomy presents to the chief complaint of bilateral jaw pain. Patient forced this has been ongoing since 2013. Patient reports that is worse chewing, talking. Patient states that her jaw pain is causing her to have a bitemporal headache. Patient reports this feels similar to headache she is experiencing past. Denies thunderclap onset. Denies any other symptoms. Denies any chest pain or shortness of breath. Denies other complaints. Systemic: Pt denies fatigue, fever/chills, rash. Pt denies weakness, night sweats, weight loss. Neuro: Pt denies headache, visual disturbances, syncope or pre-syncope. HEENT: Pt denies ocular discharge or irritation, otalgia, rhinorrhea, pharyngitis or notable lymphadenopathy. Cardiopulmonary: Pt denies chest pain, SOB, heart palpitations, dyspnea on exertion. Abdominal/GI: Pt denies abdominal pain, n/v/d. : Pt denies dysuria, burning w/ urination, frequency/urgency. Denies new onset urinary or bowel incontinence. MSK: Pt denies myalgia, loss of strength or function in extremities. Neuro: Pt denies new onset weakness, paresthesias. - Related Data Previous Rx's Medication Instructions Recorded metroNIDAZOLE [Flagyl] 500 mg PO TID #21 tab 07/07/18 Allergies Allergy/AdvReac Type Severity Reaction Status Date / Time codeine AdvReac STOMACH Verified 12/25/18 16:37 PAIN Review of Systems ROS Statement: Those systems with pertinent positive or pertinent negative responses have been documented in the HPI. ROS Other: All systems not noted in ROS Statement are negative. Past Medical History Additional Past Medical History / Comment(s): lyme disease, degenerative disc disease, hiatal hernia, IBS History of Any Multi-Drug Resistant Organisms: None Reported Past Surgical History: Back Surgery, Cholecystectomy, Hysterectomy, Orthopedic Surgery, Tonsillectomy Additional Past Surgical History / Comment(s): left third didgit, left knee Past Psychological History: Depression Smoking Status: Current every day smoker Past Alcohol Use History: None Reported Past Drug Use History: Marijuana General Exam - General Exam Comments Initial Comments: Constitutional: NAD, AOX3, Pt has pleasant affect. HEENT: NC/AT, trachea midline, neck supple, no lymphadenopathy. Posterior pharynx non erythematous, without exudates. External ears appear normal, without discharge. Mucous membranes moist. Eyes PERRLA, EOM intact. There is no scleral icterus. No pallor noted. Cardiopulmonary: RRR, no murmurs, rubs or gallops, no JVD noted. Lungs CTAB in anterior and posterior ramos. No peripheral edema. Abdominal exam: Abdomen soft and non-distended. Abdomen non-tender to palpation in all 4 quadrants. Bowel sounds active in LLQ. No hepatosplenomegaly. No ecchymosis Neuro: CN II-XII intact. No nuchal rigidity. No raccon eyes, no sanford sign, no hemotympanum. No cervical spinal tenderness. MSK: TMJ mildly tender to palpation. No erythema or skin changes. No posterior calf tenderness bilaterally, homans sign negative bilaterally. Posterior tibialis and radial pulse +2 bilaterally. Sensation intact in upper and lower extremities. Full active ROM in upper and lower extremities, 5/5 stregnth. Limitations: no limitations Course Vital Signs 12/25/18 16:34 Temperature 98.4 F Pulse Rate 89 Respiratory 18 Rate Blood Pressure 116/89 O2 Sat by Pulse 97 Oximetry Medical Decision Making - Medical Decision Making 38-year-old female patient past history significant for hysterectomy presents to the chief complaint of bilateral jaw pain. Patient forced this has been ongoing since 2013. Patient reports that is worse chewing, talking. Patient states that her jaw pain is causing her to have a bitemporal headache. Patient reports this feels similar to headache she is experiencing past. Denies thunderclap onset. Denies any other symptoms. Denies other complaints. She will signs stable, afebrile. Physical exam displayed: TMJ mildly tender to palpation. CN II-XII intact. No nuchal rigidity. No raccon eyes, no sanford sign, no hemotympanum. No cervical spinal tenderness. Patient offered further workup including CAT scan, patient denied states that she has had many CAT scans in the past, believes the TMJ she has experienced past. She reports that she just wants pain control and will follow up with primary care doctor. Return precautions discussed. Case discussed with Dr. Lee. Disposition Clinical Impression: Jaw pain Disposition: HOME SELF-CARE Condition: Stable Instructions (If sedation given, give patient instructions): Temporomandibular Disorder (ED) Additional Instructions: Patient to adhere to previously discussed treatment plan and will take medication(s) as directed. Patient to follow up with PCP in 1-2 days. Patient to return to ED if symptoms do not improve. Follow-up with primary care provider tomorrow. Use Tylenol or Motrin for pain. Return to ER if condition worsens. Is patient prescribed a controlled substance at d/c from ED?: No Referrals: Melisa Bryan MD [Primary Care Provider] - 1-2 days
[2018-12-25] MEDS ORDERED: ACETAMINOPHEN TAB 325 MG TAB PO STA (17:18)
[2018-12-25] MEDS ORDERED: DIAZEPAM 5 MG TAB PO STA (17:27)
== END 2018-12-25 17:56 | disposition home or self-care (01) ==
LOC: EC 16:27
DX: R68.84 Jaw pain (principal); R51 Headache; F17.200 Nicotine dependence, unspecified, uncomplicated; Z53.29 Procedure and treatment not carried out because of patient's decision for other reasons; Z88.5 Allergy status to narcotic agent
CPT/HCPCS: 99284

== ENCOUNTER → 2018-12-31 | Outpatient (CLI) | payer MEDICARE, OTHER ==
--- NOTE | 2018-12-31 14:33 | US ---
EXAMINATION TYPE: US transvaginal DATE OF EXAM: 12/31/2018 COMPARISON: US 07/27/2017 CLINICAL HISTORY: N83.202 Unspecified ovarian cyst, left side. TECHNIQUE: Transvaginal (TV). Date of LMP: partial hysterectomy 5 years ago EXAM MEASUREMENTS: Uterus: Surgically absent Endometrial Stripe: Surgically absent Right Ovary: 3.1 x 3.1 x 1.5 cm Left Ovary: 2.1 x 2.1 x 1.6 cm 1. Uterus: Surgically absent 2. Endometrium: Surgically absent 3. Right Ovary: follicle maeasures 1.7 x 1.4 x 1.4 cm. On the prior exam of 2017 the right ovary dem onstrated a complex follicle measuring 1.0 x 0.8 x 1.3 cm. This appears to have resolved in the right ovarian follicle on the current exam appears new as it is anechoic and simple appearing. 4. Left Ovary: two on 1.0 cm follicles seen. Currently there are few internal echoes in one of these follicles, likely minimal debris/hemorrhage. On the prior exam of 2017 the left ovary demonstrated t o be dominant follicles 1 measuring 1.5 and 1.5 x 1.3 cm and the second measuring 1.8 x 1.7 x 2.2 cm. 5. Bilateral Adnexa: wnl 6. Posterior cul-de-sac: wnl IMPRESSION: Bilateral ovarian follicles, physiologic. No dominant suspicious ovarian mass.
== END | disposition home or self-care (01) ==
LOC: RADUSWWP 13:43
PROVIDERS: ATTEND Obstetrics & Gynecology
DX: N83.202 Unspecified ovarian cyst, left side (principal)
CPT/HCPCS: 76830

== ENCOUNTER → 2019-11-14 | Outpatient (CLI) | payer MEDICARE, OTHER ==
[2019-11-14 15:28] LABS: Basophils # (A) 0.1 k/uL (0-0.2); Basophils % (A) 1 %; Eosinophils # (A) 0.6 k/uL (0-0.7); Eosinophils % (A) 5 %; HCT 47.1 % (34.0-46.0); HGB 15.2 gm/dL (11.4-16.0); Lymphocytes # (A) 3.6 k/uL (1.0-4.8); Lymphocytes % (A) 29 %; MCH 30.9 pg (25.0-35.0); MCHC 32.2 g/dL (31.0-37.0); Mean Platelet Volume 9.1; Monocytes # (A) 0.5 k/uL (0-1.0); Monocytes % (A) 4 %; Neutrophils # (A) 7.4 k/uL (1.3-7.7); Neutrophils % (A) 60 %; Platelet Count 203 k/uL (150-450); RDW 12.6 % (11.5-15.5); WBC 12.4 k/uL (3.8-10.6)
== END | disposition home or self-care (01) ==
LOC: LABPAT 13:16
PROVIDERS: ATTEND Surgery
DX: Z01.818 Encounter for other preprocedural examination (principal); K43.0 Incisional hernia with obstruction, without gangrene; D64.9 Anemia, unspecified; F17.200 Nicotine dependence, unspecified, uncomplicated
CPT/HCPCS: 36415; 85025; 86850; 86900; 86901

== ENCOUNTER → 2019-11-15 | Outpatient (CLI) | payer MEDICARE, OTHER ==
--- NOTE | 2019-11-16 07:02 | US ---
EXAMINATION TYPE: US thyroid st tissue head/neck DATE OF EXAM: 11/15/2019 COMPARISON: US 04/01/2018 CLINICAL HISTORY: R22.1 Mass of left side of neck. GLAND SIZE: Right Lobe: 5.5 x 1.2 x 2.2 cm Overall Parenchyma: homogenous Left Lobe: 6.5 x 3.3 x 2.9 cm Overall Parenchyma: heterogeneous Isthmus Thickness: 0.5 cm NODULES RIGHT: # of nodules measured on right: 0 LEFT: # of nodules measured on left: 1 1. 3.7 X 2.6 x 2.8 cm hypoechoic solid nodule at the lower pole with well-defined margins; . This nodule is wider than tall and shows intranodular vascularity. Prior size: 3.5 x 1.9 x 3.5 cm ISTHMUS: # of nodules measured in the isthmus: 0 Bilateral neck scanned, no evidence of lymphadenopathy. IMPRESSION: Radial megaly with essentially stable complex nodule left thyroid lobe.
== END | disposition home or self-care (01) ==
LOC: RADUSWWP 16:56
PROVIDERS: ATTEND Family Medicine
DX: E04.1 Nontoxic single thyroid nodule (principal)
CPT/HCPCS: 76536

== ENCOUNTER 2019-11-16 06:58 | Day surgery (SDC) | payer MEDICARE, OTHER ==
[2019-11-14 11:22] VITALS: BMI 36.3
[2019-11-16] MEDS: LACTATED RINGERS 1,000 ML IV SCH ×2 (07:39→07:43)
[2019-11-16] MEDS ORDERED: PROPOFOL 10 MG/ML 20 ML VIAL IV ONE (07:44)
[2019-11-16] MEDS ORDERED: ONDANSETRON 4 MG/2 ML VIAL ONE (07:58)
[2019-11-16] MEDS ORDERED: ONDANSETRON 4 MG/2 ML VIAL IVP ONE ×2 (08:00)
--- NOTE | 2019-11-16 08:07 | P.GSHP ---
History of Present Illness H&P Date: 11/16/19 Chief Complaint: GERD This a 39-year-old female who has safer EGD. Patient issues with GERD. Past Medical History Past Medical History: Cancer, Fibromyalgia, GERD/Reflux, Osteoarthritis (OA) Additional Past Medical History / Comment(s): lyme disease, DDD, hiatal hernia, IBS, CERVICAL CA, BELLS PALSY VS TIA 2013-NOT SURE WHICH ONE-NO RESIDUAL SYMPTOMS. PT STATES THAT SHE HYPERVENTILATES AND GETS BRONCHIAL SPASMS WHEN STRESSED History of Any Multi-Drug Resistant Organisms: None Reported Past Surgical History: Back Surgery, Cholecystectomy, Hysterectomy, Orthopedic Surgery, Tonsillectomy Additional Past Surgical History / Comment(s): left third didgit, left knee SX, HAVING EGD 11/16/19, CERVICAL SX Past Anesthesia/Blood Transfusion Reactions: No Reported Reaction Past Psychological History: Anxiety, Depression Past Alcohol Use History: None Reported Past Drug Use History: Marijuana - Past Family History Mother Family Medical History: No Reported History Medications and Allergies Home Medications Medication Instructions Recorded Confirmed Type Cholecalciferol [Vitamin D3 (25 5,000 unit PO DAILY 11/14/19 11/16/19 History Mcg = 1000 Iu)] Cyanocobalamin (Vitamin B-12) 1,000 mcg PO DAILY 11/14/19 11/16/19 History [Vitamin B-12] Cyclobenzaprine [Flexeril] 10 mg PO BID PRN 11/14/19 11/16/19 History Ibuprofen [Motrin] 800 mg PO BID PRN 11/14/19 11/16/19 History Turmeric Root Extract [Turmeric] 500 mg PO DAILY 11/14/19 11/16/19 History busPIRone HCL 10 mg PO BID 11/14/19 11/16/19 History Allergies Allergy/AdvReac Type Severity Reaction Status Date / Time codeine AdvReac STOMACH Verified 11/16/19 07:31 PAIN Surgical - Exam Vital Signs Temp Pulse Resp BP Pulse Ox 98.2 F 96 18 119/68 99 11/16/19 07:29 11/16/19 07:29 11/16/19 07:29 11/16/19 07:29 11/16/19 07:29 - General well developed, well nourished, no distress - Eyes PERRL - ENT normal pinna - Neck no masses - Respiratory normal expansion - Cardiovascular Rhythm: regular - Abdomen Abdomen: soft, non tender Assessment and Plan Assessment: GERD we will perform EGD
--- NOTE | 2019-11-16 08:07 | P.OP ---
Date of Procedure: 11/16/19 Preoperative Diagnosis: GERD Postoperative Diagnosis: Antral gastritis Retained gastric food Procedure(s) Performed: EGD Anesthesia: MAC Surgeon: Sohail Watson Pathology: other (Antrum) Condition: stable Disposition: PACU Description of Procedure: The patient's placed on the endoscopy table in the lateral position. She received IV sedation. The gastroscope was oropharynx and passed esophagus into the stomach. Scope was then placed through the pylorus. The first and second portion of the duodenum appeared normal. Scope was then brought back the antrum this is minimally inflamed. A biopsies performed. The scope was unretroflexed and remainder of the stomach appeared normal. The GE junction was at 40 cm there is a minimal hiatal hernia. The distal esophagus appeared normal. The proximal esophagus appeared normal. Scope was withdrawn from patient.
[2019-11-16 08:11] VITALS: TEMP 98.2
[2019-11-16 08:15] VITALS: BP 106/69; PULSE 65; RESP 17
== END 2019-11-16 08:37 | disposition home or self-care (01) ==
LOC: ORWHC2ENDO 06:58
PROVIDERS: ATTEND Surgery
DX: K29.50 Unspecified chronic gastritis without bleeding (principal); K31.89 Other diseases of stomach and duodenum; K21.9 Gastro-esophageal reflux disease without esophagitis; M79.7 Fibromyalgia; M19.90 Unspecified osteoarthritis, unspecified site; Z86.19 Personal history of other infectious and parasitic diseases; M51.9 Unspecified thoracic, thoracolumbar and lumbosacral intervertebral disc disorder; K44.9 Diaphragmatic hernia without obstruction or gangrene; K58.9 Irritable bowel syndrome, unspecified; F41.9 Anxiety disorder, unspecified; F32.9 Major depressive disorder, single episode, unspecified; F17.210 Nicotine dependence, cigarettes, uncomplicated; Z85.41 Personal history of malignant neoplasm of cervix uteri; Z87.09 Personal history of other diseases of the respiratory system; Z98.890 Other specified postprocedural states; Z90.49 Acquired absence of other specified parts of digestive tract; Z90.710 Acquired absence of both cervix and uterus; Z90.89 Acquired absence of other organs; Z79.899 Other long term (current) drug therapy; Z79.1 Long term (current) use of non-steroidal anti-inflammatories (NSAID); Z88.5 Allergy status to narcotic agent
CPT/HCPCS: 88305; 43239; J2405; J2704

== ENCOUNTER 2019-11-21 09:53 | Day surgery (SDC) | payer MEDICARE, OTHER ==
[2019-11-15 08:55] VITALS: BMI 36.3
[~2019-11-21 09:53] MED LIST: ACETAMINOPHEN TAB 500 MG TAB PO ONE; DEXAMETHASONE SOD PHOSPHATE 10 MG/ML 1 ML VIAL IV ONE; HEPARIN SODIUM,PORCINE 5,000 UNIT/ML 1 ML VIAL SQ ONE; LIDOCAINE 1% (10MG/ML) FOR IV START INTRADERMA PRN; ONDANSETRON 4 MG/2 ML VIAL IVP ONE; SCOPOLAMINE 1.5MG/72HR PATCH TRANSDERM ONE
[2019-11-21 10:16] VITALS: TEMP 97.9
[2019-11-21] MEDS ORDERED: ACETAMINOPHEN TAB 500 MG TAB ONE (10:22)
[2019-11-21] MEDS ORDERED: HEPARIN SODIUM,PORCINE 5,000 UNIT/ML 1 ML VIAL ONE (10:22)
[2019-11-21] MEDS ORDERED: ONDANSETRON 4 MG/2 ML VIAL ONE (10:22)
[2019-11-21] MEDS: LACTATED RINGERS 1,000 ML IV SCH ×2 (10:45→14:10)
[2019-11-21] MEDS ORDERED: MIDAZOLAM 2 MG/2 ML VIAL IVP ONE (10:55)
[2019-11-21] MEDS ORDERED: fentaNYL (PF) 50 MCG/ML 2 ML AMP IVP ONE (10:55)
--- NOTE | 2019-11-21 11:17 | P.GSHP ---
History of Present Illness H&P Date: 11/21/19 Chief Complaint: Epigastric incisional hernia Is a 39-year-old female developed an incisional hernia after laparoscopic cholecystectomy. Her cholecystectomy done by different surgeon many years ago. She has a 4 cm incisional hernia located epigastric area. Past Medical History Past Medical History: Cancer, Fibromyalgia, GERD/Reflux, Osteoarthritis (OA) Additional Past Medical History / Comment(s): lyme disease, DDD, hiatal hernia, IBS, CERVICAL CA, BELLS PALSY VS TIA 2012-NOT SURE WHICH ONE-NO RESIDUAL SYMPTOMS. PT STATES THAT SHE HYPERVENTILATES AND GETS BRONCHIAL SPASMS WHEN STRESSED History of Any Multi-Drug Resistant Organisms: None Reported Past Surgical History: Back Surgery, Cholecystectomy, Hysterectomy, Orthopedic Surgery, Tonsillectomy Additional Past Surgical History / Comment(s): left third didgit, left knee SX, HAVING EGD 11/16/19, CERVICAL SX Past Anesthesia/Blood Transfusion Reactions: No Reported Reaction Past Psychological History: Anxiety, Depression Past Alcohol Use History: None Reported Past Drug Use History: Marijuana - Past Family History Mother Family Medical History: No Reported History Medications and Allergies Home Medications Medication Instructions Recorded Confirmed Type Cholecalciferol [Vitamin D3 (25 5,000 unit PO DAILY 11/14/19 11/21/19 History Mcg = 1000 Iu)] Cyanocobalamin (Vitamin B-12) 1,000 mcg PO DAILY 11/14/19 11/21/19 History [Vitamin B-12] Cyclobenzaprine [Flexeril] 10 mg PO BID PRN 11/14/19 11/21/19 History Ibuprofen [Motrin] 800 mg PO BID PRN 11/14/19 11/21/19 History Turmeric Root Extract [Turmeric] 500 mg PO DAILY 11/14/19 11/21/19 History busPIRone HCL 10 mg PO BID 11/14/19 11/21/19 History Allergies Allergy/AdvReac Type Severity Reaction Status Date / Time codeine AdvReac STOMACH Verified 11/21/19 10:19 PAIN Surgical - Exam Vital Signs Temp Pulse Resp BP Pulse Ox 97.9 F 107 H 16 120/64 95 11/21/19 10:05 11/21/19 10:05 11/21/19 10:05 11/21/19 10:05 11/21/19 10:05 - General well developed, well nourished, no distress - Eyes PERRL - ENT normal pinna - Neck no masses - Respiratory normal expansion - Cardiovascular Rhythm: regular - Abdomen For semi-epigastric incisional. The hernia is reducible Abdomen: soft, non tender Assessment and Plan Assessment: Incisional hernia. We'll perform laparoscopic robotic-assisted repair.
[2019-11-21] MEDS ORDERED: DEXAMETHASONE SOD PHOSPHATE 4 MG/ML 1 ML VIAL ONE (12:06)
[2019-11-21] MEDS ORDERED: HYDROmorphone (PF) 1 MG/ML ONE (12:06)
[2019-11-21] MEDS ORDERED: NEOSTIGMINE 1 MG/ML 10 ML VIAL ONE (12:06)
[2019-11-21] MEDS ORDERED: LIDOCAINE 1% INJ 10MG/ML (20 ML MDV) ONE (12:06)
[2019-11-21] MEDS ORDERED: ROPIVACAINE 5 MG/ML 30 ML VIAL ONE (12:06)
[2019-11-21] MEDS ORDERED: ROCURONIUM BROMIDE 10 MG/ML 5 ML VIAL IV ONE (12:06)
[2019-11-21] MEDS ORDERED: PROPOFOL 10 MG/ML 20 ML VIAL IV ONE (12:06)
[2019-11-21] MEDS ORDERED: MIDAZOLAM 2 MG/2 ML VIAL ONE (12:06)
[2019-11-21] MEDS ORDERED: KETOROLAC 30 MG/ML 1 ML VIAL ONE (12:06)
[2019-11-21] MEDS ORDERED: GLYCOPYRROLATE 0.2 MG/ML 2 ML VIAL ONE (12:06)
[2019-11-21] MEDS ORDERED: SUCCINYLCHOLINE CHLORIDE 100 MG/5 ML SYR IV ONE (12:06)
[2019-11-21] MEDS ORDERED: fentaNYL (PF) 50 MCG/ML 2 ML AMP ONE (12:06)
--- NOTE | 2019-11-21 12:16 | P.ANPRN ---
Procedure Note - Anesthesia - Nerve Block Performed Bilateral Rectus Abdominis Time Out Performed: Yes (:54) Date of Procedure: 11/21/19 Procedure Start Time: 54 Procedure Stop Time: 11:11 Location of Patient: PreOp Indication: Acute Post-Operative Pain, Requested by Surgeon (Dr Lynn) Sedation Type: Sedate with meaningful contact maintained Preparation: Sterile Prep Position: Supine Catheter: None Needle Types: Pajunk Needle Gauge: 21 Ultrasound used to visualize needle placement: Yes Ultrasound used to observe medication spread: Yes Injectate: 0.5% Ropivacaine (see comment for volume) (15cc each side. decadron 2mg each side (4mg total)) Blood Aspirated: No Pain Paresthesia on Injection Noted: No Resistance on Injection: Normal Image Stored and Saved: Yes Events: Uneventful and Well Tolerated
[2019-11-21] MEDS ORDERED: BUPIVACAINE (PF) 0.25% 30 ML VIAL SQ ONE (12:36)
--- NOTE | 2019-11-21 13:52 | P.OP ---
Date of Procedure: 11/21/19 Preoperative Diagnosis: Incisional hernia incarcerated Postoperative Diagnosis: Incarcerated incisional hernia Procedure(s) Performed: Repair of incarcerated incisional hernia Partial omentectomy Anesthesia: AMEENA Surgeon: Sohail Watson Pathology: other (Omentum) Condition: stable Disposition: PACU Description of Procedure: The patient was placed on the operating table in the supine position. He received general anesthesia. His abdomen was prepped and draped usual fashion. An infraumbilical skin incision was made. Then using a pair of Danette clamps and blood was grasped and the Veress needle was placed. Cavity. Position of her peritoneal was confirmed with positive drop test. The abdomen was then insufflated. Next a 5 mm trochars placed in the peritoneal cavity. Following this an 8 mm robotic trochars placed in the right lower quadrant and then a 12 mm robotic trochars placed in the left lower quadrant and a 8 mm robotic trochars were placed for the original 5 mm trocar. The patient was docked the robot. The incisional hernia was visualized. Using hook cautery the peritoneum over the incisional hernia was excised. The incarcerated omentum was dissected and sent to pathology. The fascial opening was repaired using 0V LOC suture. Next a piece of 11 cm round ventral light ST mesh was placed into the. Cavity and secured with 2 OV lock suture. The patient was undocked the robot. The needles were retrieved. The fascia of the 12 mm trocar site was closed with 0 Ethibond suture. Skin was closed interrupted 3-0 Monocryl suture. Dermabond dressings was applied. Patient tolerated procedure well and was sent to recovery room stable condition.
[2019-11-21] MEDS: HYDROmorphone 0.5 MG/0.5 ML SYRINGE IVP PRN ×2 (13:57→14:04)
[2019-11-21 15:26] VITALS: RESP 18
[2019-11-21 15:47] VITALS: BP 111/74; PULSE 64
== END 2019-11-21 16:25 | disposition home or self-care (01) ==
LOC: OR 09:53
PROVIDERS: ATTEND Surgery
DX: K43.0 Incisional hernia with obstruction, without gangrene (principal); M79.7 Fibromyalgia; K21.9 Gastro-esophageal reflux disease without esophagitis; M19.90 Unspecified osteoarthritis, unspecified site; M51.9 Unspecified thoracic, thoracolumbar and lumbosacral intervertebral disc disorder; K44.9 Diaphragmatic hernia without obstruction or gangrene; K58.9 Irritable bowel syndrome, unspecified; F41.9 Anxiety disorder, unspecified; F32.9 Major depressive disorder, single episode, unspecified; F17.210 Nicotine dependence, cigarettes, uncomplicated; Z90.49 Acquired absence of other specified parts of digestive tract; Z85.41 Personal history of malignant neoplasm of cervix uteri; Z86.19 Personal history of other infectious and parasitic diseases; Z86.69 Personal history of other diseases of the nervous system and sense organs; Z98.890 Other specified postprocedural states; Z90.710 Acquired absence of both cervix and uterus; Z90.89 Acquired absence of other organs; Z79.899 Other long term (current) drug therapy; Z79.1 Long term (current) use of non-steroidal anti-inflammatories (NSAID); Z88.5 Allergy status to narcotic agent
CPT/HCPCS: 49561; 49568; 64488; 88305; C1781; J2250; J1644; J1100 ×2; J2710; J0690; J2405; J2001; J3010; J1885; J1170 ×2; J2795; J0330; J2704; 86850; 86900; 86901

== ENCOUNTER → 2020-11-28 | Outpatient (CLI) | payer MEDICARE, OTHER ==
--- NOTE | 2020-11-28 16:05 | XR ---
Lumbar spine HISTORY: Low back pain, degenerative disc disease 3 views lumbar spine The lumbar vertebral bodies show preserved height, alignment, and bone mineralization. There is mild multilevel spondylosis. Some loss of disc height present L5-S1. Sclerosis present in the posterior el ements of the lower lumbar spine. Apical scarring vascular calcifications are noted in the aortoiliac distribution. Surgical clips are present right upper quadrant. impression: Mild degenerative disc disease, facet arthropathy.
--- NOTE | 2020-11-28 16:08 | XR ---
Cervical spine HISTORY: Neck pain 6 views of the cervical spine, no comparisons Patient is status post anterior cervical fusion and discectomy at C5-6. There is multilevel spondylos is, loss of disc height present at C3-4, C4-5, C5-6 and C6-7. There is reversal the normal lordosis c an be seen in muscle spasm. Foraminal encroachment is suspected bilaterally at C5-6 due to uncoverteb ral joint hypertrophy and on the right at C3-4 to the left. IMPRESSION: Degenerative disc disease and postop changes.
--- NOTE | 2020-11-28 16:09 | XR ---
Thoracic spine HISTORY: Degenerative disc disease Reviews of the thoracic spine Thoracic vertebral bodies show preserved height, alignment, bone mineralization is mildly reduced. Th ere is multilevel spondylosis. Some loss of disc height at intervertebral levels the midthoracic spin e is noted. There is a slight spinal curvature. IMPRESSION: Degenerative disc disease, some loss of bone mineralization is suspected. Spinal curvatur e.
== END | disposition home or self-care (01) ==
LOC: RADXRMAIN 14:22
PROVIDERS: ATTEND Nurse Practitioner Family
DX: M51.36 Other intervertebral disc degeneration, lumbar region (principal); M47.817 Spondylosis without myelopathy or radiculopathy, lumbosacral region; M50.323 Other cervical disc degeneration at C6-C7 level; M47.812 Spondylosis without myelopathy or radiculopathy, cervical region; M51.34 Other intervertebral disc degeneration, thoracic region
CPT/HCPCS: 72050; 72070; 72100

== ENCOUNTER → 2021-10-10 | Outpatient (CLI) | payer MEDICARE, OTHER ==
--- NOTE | 2021-10-10 09:59 | CT ---
EXAMINATION TYPE: CT chest wo con CT DLP: 678.7 mGycm, Automated exposure control for dose reduction was used. DATE OF EXAM: 10/10/2021 9:20 AM COMPARISON: No direct comparisons. CLINICAL INDICATION:Female, 41 years old with history of J98.4 PULM NODULE; PHH, Left side pulmonary nodule. TECHNIQUE: Multiple axial images were obtained through the chest without IV contrast. Lack of IV or o ral contrast limits evaluation of solid and hollow organ viscera. FINDINGS: LUNGS/ PLEURA: Few pulmonary nodules are identified. Index nodules include right upper lobe pulmonary nodule along the minor fissure (series 4, image 28), left upper lobe nodules with index nodule inclu ding a 4 mm pulmonary nodule (series 4, image 22). Lingular nodule measuring up to 5 mm (series 4, im age 28). AIRWAY: Patent and unremarkable. HEART: Size within normal limits. No pericardial effusion. MEDIASTINUM: No gross evidence of adenopathy. VASCULATURE: No aortic aneurysm. MUSCULOSKELETAL: No acute osseous abnormalities SOFT TISSUES/LYMPH NODES: Unremarkable. LOWER NECK: No significant findings. UPPER ABDOMEN: Post cholecystectomy. Diffusely hypoattenuating liver. IMPRESSION: 1. Few pulmonary nodules measuring up to 5 mm. Correlation with prior imaging is recommended to asses s for stability. 2. Mild hepatic steatosis.
== END | disposition home or self-care (01) ==
LOC: RADCTMAIN 08:54
PROVIDERS: ATTEND Internal Medicine Hematology & Oncology
DX: K76.0 Fatty (change of) liver, not elsewhere classified (principal); J98.4 Other disorders of lung; R91.8 Other nonspecific abnormal finding of lung field
CPT/HCPCS: 71250

== ENCOUNTER 2022-03-05 09:33 | Emergency (ER) | payer MEDICARE, OTHER ==
--- NOTE | 2022-03-05 10:06 | ED ---
Female Urogenital HPI - General Chief complaint: Urogenital Stated complaint: urogenital Time Seen by Provider: 03/05/22 09:59 Source: patient, RN notes reviewed, old records reviewed Mode of arrival: ambulatory Limitations: no limitations - History of Present Illness Initial comments: This is a nontoxic-appearing 41-year-old female who presents to the emergency room with complaints of pelvic pain and vaginal itching. Patient states she is also having burning. This is similar to when she was treated for bacterial vaginosis in the summer. Denies any fevers. No chance of sexually transmitted infection or . Nonsmoker. MD Complaint: pelvic pain -: days(s) (2) Radiation: non-radiating Severity scale (1-10): 6 Quality: sharp Consistency: constant Improves with: none Worsens with: other (palpation) Patient : No Associated Symptoms: other (vaginal itching) - Related Data Home Medications Medication Instructions Recorded Confirmed Cholecalciferol [Vitamin D3 (25 5,000 unit PO DAILY 11/14/19 11/21/19 Mcg = 1000 Iu)] Cyanocobalamin (Vitamin B-12) 1,000 mcg PO DAILY 11/14/19 11/21/19 [Vitamin B-12] Cyclobenzaprine [Flexeril] 10 mg PO BID PRN 11/14/19 11/21/19 Ibuprofen [Motrin] 800 mg PO BID PRN 11/14/19 11/21/19 Turmeric Root Extract [Turmeric] 500 mg PO DAILY 11/14/19 11/21/19 busPIRone HCL 10 mg PO BID 11/14/19 11/21/19 Previous Rx's Medication Instructions Recorded Docusate [Colace] 100 mg PO BID #20 capsule 11/21/19 HYDROcodone/APAP 5-325MG [[place] 1 tab PO Q6HR PRN #10 tab 11/21/19 5-325] metroNIDAZOLE [Flagyl] 500 mg PO BID 7 Days #14 tab 03/05/22 Allergies Allergy/AdvReac Type Severity Reaction Status Date / Time codeine AdvReac STOMACH Verified 03/05/22 09:44 PAIN Review of Systems ROS Statement: Those systems with pertinent positive or pertinent negative responses have been documented in the HPI. ROS Other: All systems not noted in ROS Statement are negative. Past Medical History Past Medical History: Cancer, Fibromyalgia, GERD/Reflux, Osteoarthritis (OA) Additional Past Medical History / Comment(s): lyme disease, DDD, hiatal hernia, IBS, CERVICAL CA, BELLS PALSY VS TIA 2012-NOT SURE WHICH ONE-NO RESIDUAL SYMPTOMS. PT STATES THAT SHE HYPERVENTILATES AND GETS BRONCHIAL SPASMS WHEN STRESSED History of Any Multi-Drug Resistant Organisms: None Reported Past Surgical History: Back Surgery, Cholecystectomy, Hysterectomy, Orthopedic Surgery, Tonsillectomy Additional Past Surgical History / Comment(s): left third didgit, left knee SX, HAVING EGD 11/16/19, CERVICAL SX Past Anesthesia/Blood Transfusion Reactions: No Reported Reaction Past Psychological History: Depression Smoking Status: Current every day smoker Past Alcohol Use History: None Reported Past Drug Use History: Marijuana - Past Family History Mother Family Medical History: No Reported History General Exam Limitations: no limitations General appearance: alert, in no apparent distress Head exam: Present: atraumatic, normocephalic Eye exam: Present: normal appearance. Absent: scleral icterus, conjunctival injection, periorbital swelling, periorbital tenderness ENT exam: Present: mucous membranes moist Respiratory exam: Present: normal lung sounds bilaterally. Absent: respiratory distress, accessory muscle use Cardiovascular Exam: Present: tachycardia GI/Abdominal exam: Present: soft, tenderness (Suprapubic). Absent: distended, guarding, rebound, rigid External exam: Present: normal external exam. Absent: erythema, swelling, lesions, lacerations, ecchymosis Speculum exam: Present: vaginal discharge, cervical discharge (Creamy white). Absent: erythema, vaginal bleeding, foreign body, tissue, laceration Extremities exam: Present: normal capillary refill. Absent: pedal edema, calf tenderness Back exam: Present: normal inspection. Absent: tenderness, CVA tenderness (R), CVA tenderness (L), rash noted Neurological exam: Present: alert, oriented X3 Psychiatric exam: Present: normal affect, normal mood Skin exam: Present: warm, dry, normal color. Absent: cyanosis, diaphoretic, petechiae, pallor Course Vital Signs 03/05/22 03/05/22 09:42 11:15 Temperature 98.3 F 98 F Pulse Rate 104 H 78 Respiratory 18 16 Rate Blood Pressure 109/74 147/78 O2 Sat by Pulse 95 98 Oximetry Medical Decision Making - Medical Decision Making Urinalysis is cloudy with large leukocyte esterase occasional bacteria and 24 white blood cells. Patient states this feels similar to her bacterial vaginosis. Cervix is not red or erythematous. There is a creamy white discharge. There is no odor. Patient states this is consistent with her previous history of bacterial vaginosis. She has no concerns for sexually transmitted infection. No adnexal tenderness or cervical motion tenderness. Patient be treated with Flagyl directed to follow up with her primary care doctor. Case discussed with Dr. Soni, urinalysis was sent for culture. She is agreeable to this plan of care. - Lab Data Lab Results 03/05/22 Range/Units 09:59 Urine Color Yellow Urine Appearance Cloudy H (Clear) Urine pH 5.5 (5.0-8.0) Ur Specific [place] 1.026 (1.001-1.035) Urine Protein Trace H (Negative) Urine Glucose (UA) Negative (Negative) Urine Ketones Negative (Negative) Urine Blood Negative (Negative) Urine Nitrite Negative (Negative) Urine Bilirubin Negative (Negative) Urine Urobilinogen <2.0 (<2.0) mg/dL Ur Leukocyte Esterase Large H (Negative) Urine RBC 8 H (0-5) /hpf Urine WBC 24 H (0-5) /hpf Ur Squamous Epith Cells 16 H (0-4) /hpf Urine Bacteria Occasional H (None) /hpf Urine Mucus Few H (None) /hpf Urine Yeast (Budding) Occasional H (None) /hpf Disposition Clinical Impression: Vaginal irritation Disposition: HOME SELF-CARE Condition: Good Instructions (If sedation given, give patient instructions): Dysuria (ED) Additional Instructions: Take antibiotics as prescribed and follow-up with the primary care doctor within the next week. Return to the emergency room with any new or concerning symptoms. Prescriptions: metroNIDAZOLE [Flagyl] 500 mg PO BID 7 Days #14 tab Is patient prescribed a controlled substance at d/c from ED?: No Referrals: Melisa Bryan MD [Primary Care Provider] - 1-2 days Time of Disposition: 10:47
[2022-03-05 10:17] LABS: Appearance,Urine Cloudy (Clear); Bacteria,Urine Occasional /hpf; Bilirubin,Urine Negative (Negative); Blood,Urine Negative (Negative); Budding Yeast,Urine Occasional /hpf; Color,Urine Yellow; Glucose,Urine (UA) Negative (Negative); Ketones,Urine Negative (Negative); Leukocyte Esterase,Urine Large (Negative); Mucus,Urine Few /hpf; Nitrite,Urine Negative (Negative); PH, Urine 5.5 (5.0-8.0); Protein,Urine Trace (Negative); RBC,Urine 8 /hpf (0-5); Specific Gravity,Urine 1.026 (1.001-1.035); Squamous Epithelial Cell,Urine 16 /hpf (0-4); Urobilinogen,Urine <2.0 mg/dL (<2.0); WBC,Urine 24 /hpf (0-5)
[2022-03-05 11:17] VITALS: BP 147/78; PULSE 78; RESP 16; TEMP 98
== END 2022-03-05 11:15 | disposition home or self-care (01) ==
LOC: EC 09:33
DX: N89.8 Other specified noninflammatory disorders of vagina (principal); M19.90 Unspecified osteoarthritis, unspecified site; F12.90 Cannabis use, unspecified, uncomplicated; F32.A Depression, unspecified; F17.200 Nicotine dependence, unspecified, uncomplicated; Z88.5 Allergy status to narcotic agent; Z79.899 Other long term (current) drug therapy
CPT/HCPCS: 81001; 87070; 87086; 99284

== ENCOUNTER → 2022-03-05 | Outpatient (CLI) | payer MEDICARE, OTHER ==
--- NOTE | 2022-03-05 10:00 | CT ---
EXAMINATION TYPE: CT chest wo con DATE OF EXAM: 03/05/2022 COMPARISON: Chest CT October 10, 2021 HISTORY: Follow up for pulmonary nodules. Patient having no symptoms at time of scan. CT DLP: 602.7 mGycm. Automated Exposure Control for Dose Reduction was Utilized. TECHNIQUE: CT scan of the thorax is performed without IV contrast. FINDINGS: LUNGS: Scattered tiny nodules redemonstrated. Stable 2 to 3 mm nodular prominence right mid lung orlando g fissure image 33 for reference. Stable 3 nearby nodules all measuring 4 mm or smaller in size in t he left mid lung axial images 28 and 29. The largest nodule remains in the lingula axial image 39 and coronal image 40 measuring 4 to 5 mm in size and stable. No new or enlarging greater than 5 mm pulmo nary nodules. There Is no pleural effusion or pneumothorax seen. The tracheobronchial tree is patent . MEDIASTINUM: Lack of IV contrast is noted to limit evaluation for mediastinal and especially hilar ad enopathy. There are no definitive greater than 1 cm hilar or mediastinal lymph nodes. No cardiomega ly or pericardial effusion is seen. OTHER: Cholecystectomy clips are seen. Visualized liver is heterogeneously hypodense. IMPRESSION: Few scattered small nodules are redemonstrated and stable. No new or enlarging nodules.
== END | disposition home or self-care (01) ==
LOC: RADCTMAIN 09:18
PROVIDERS: ATTEND Internal Medicine Hematology & Oncology
DX: J98.4 Other disorders of lung (principal); R91.8 Other nonspecific abnormal finding of lung field
CPT/HCPCS: 71250

== ENCOUNTER → 2022-09-03 | Outpatient (CLI) | payer MEDICARE, OTHER ==
--- NOTE | 2022-09-03 10:34 | CT ---
EXAMINATION TYPE: CT chest wo con DATE OF EXAM: 09/03/2022 COMPARISON: Prior CT March 05, 2022 and October 10, 2021 HISTORY: Pulmonary nodule CT DLP: 778 mGycm. Automated Exposure Control for Dose Reduction was Utilized. TECHNIQUE: CT scan of the thorax is performed without IV contrast. FINDINGS: LUNGS: Scattered tiny nodules redemonstrated. Stable 2 to 3 mm scattered nodules throughout the right lung on axial image 28. Stable 3 to 4 mm anterior left mid lung nodules axial image 22 and axial av ge 23 for reference. The largest nodule remains in the lingula axial image 32 and coronal image 57 me asuring 5 mm in size and stable. No new or enlarging greater than 5 mm pulmonary nodules. There Is no pleural effusion or pneumothorax seen. The tracheobronchial tree is patent. MEDIASTINUM: Lack of IV contrast is noted to limit evaluation for mediastinal and especially hilar ad enopathy. There are no definitive new greater than 1 cm mediastinal lymph nodes. No cardiomegaly or pericardial effusion is seen. OTHER: Cholecystectomy clips are seen. Visualized liver remains heterogeneously hypodense. IMPRESSION: Few scattered small nodules are redemonstrated and stable. No new or enlarging greater th an 5 mm pulmonary nodules. No significant change from most recent CT.
== END | disposition home or self-care (01) ==
LOC: RADCTMAIN 08:39
PROVIDERS: ATTEND Internal Medicine Hematology & Oncology
DX: J98.4 Other disorders of lung (principal); R91.8 Other nonspecific abnormal finding of lung field; D72.829 Elevated white blood cell count, unspecified; E78.5 Hyperlipidemia, unspecified; R51.9 Headache, unspecified
CPT/HCPCS: 71250

== ENCOUNTER 2022-09-13 22:52 | Emergency (ER) | payer MEDICARE, OTHER ==
[2022-09-13 22:56] VITALS: TEMP 98.3
[2022-09-13] MEDS ORDERED: ONDANSETRON 4 MG/2 ML VIAL IVP STA (23:20)
[2022-09-13] MEDS ORDERED: SODIUM CHLORIDE 0.9% 1,000 ML IV STA (23:20)
[2022-09-13] MEDS ORDERED: diphenhydrAMINE 50 MG/ML 1 ML VIAL IVP STA (23:20)
[2022-09-13] MEDS ORDERED: KETOROLAC 15 MG/ML 1 ML VIAL IVP STA (23:20)
--- NOTE | 2022-09-13 23:26 | ED ---
General Adult HPI - General Chief complaint: Nausea/Vomiting/Diarrhea Stated complaint: N/V Time Seen by Provider: 09/13/22 22:55 Source: police Mode of arrival: wheelchair - History of Present Illness Initial comments: Dictation was produced using [employer] dictation software. please excuse any grammatical, word or spelling errors. Chief Complaint: 42-year-old female with history of chronic back pain, fibromyalgia and migraines presents to the ER for headache nausea and vomiting History of Present Illness: This 42-year-old female presents for chief complaint of headache nausea vomiting. Patient history history of migraines. States that she feels nauseated in her head. States that is typical for migraine symptoms. She has been having vomiting as nonbilious and nonbloody. She is also having diarrhea. Denies any abdominal pain. Patient has no pain complaints. Denies any focal neurologic deficits. The ROS documented in this emergency department record has been reviewed and confirmed by me. Those systems with pertinent positive or negative responses have been documented in the HPI. All other systems are other negative and/or noncontributory. - Related Data Home Medications Medication Instructions Recorded Confirmed Cholecalciferol [Vitamin D3 (25 5,000 unit PO DAILY 11/14/19 11/21/19 Mcg = 1000 Iu)] Cyanocobalamin (Vitamin B-12) 1,000 mcg PO DAILY 11/14/19 11/21/19 [Vitamin B-12] Cyclobenzaprine [Flexeril] 10 mg PO BID PRN 11/14/19 11/21/19 Ibuprofen [Motrin] 800 mg PO BID PRN 11/14/19 11/21/19 Turmeric Root Extract [Turmeric] 500 mg PO DAILY 11/14/19 11/21/19 busPIRone HCL 10 mg PO BID 11/14/19 11/21/19 Previous Rx's Medication Instructions Recorded Docusate [Colace] 100 mg PO BID #20 capsule 11/21/19 HYDROcodone/APAP 5-325MG [[place] 1 tab PO Q6HR PRN #10 tab 11/21/19 5-325] metroNIDAZOLE [Flagyl] 500 mg PO BID 7 Days #14 tab 03/05/22 Allergies Allergy/AdvReac Type Severity Reaction Status Date / Time codeine AdvReac STOMACH Verified 09/13/22 22:55 PAIN Review of Systems ROS Statement: Those systems with pertinent positive or pertinent negative responses have been documented in the HPI. ROS Other: All systems not noted in ROS Statement are negative. Past Medical History Past Medical History: Cancer, Fibromyalgia, GERD/Reflux, Osteoarthritis (OA) Additional Past Medical History / Comment(s): lyme disease, DDD, hiatal hernia, IBS, CERVICAL CA, BELLS PALSY VS TIA 2013-NOT SURE WHICH ONE-NO RESIDUAL SYMPTOMS. PT STATES THAT SHE HYPERVENTILATES AND GETS BRONCHIAL SPASMS WHEN STRESSED History of Any Multi-Drug Resistant Organisms: None Reported Past Surgical History: Back Surgery, Cholecystectomy, Hysterectomy, Orthopedic Surgery, Tonsillectomy Additional Past Surgical History / Comment(s): left third didgit, left knee SX, HAVING EGD 11/16/19, CERVICAL SX Past Anesthesia/Blood Transfusion Reactions: No Reported Reaction Past Psychological History: Depression Smoking Status: Current every day smoker Past Alcohol Use History: None Reported Past Drug Use History: Marijuana - Past Family History Mother Family Medical History: No Reported History General Exam - General Exam Comments Initial Comments: PHYSICAL EXAM: General Impression: Alert and oriented x3, not in acute distress HEENT: Normocephalic atraumatic, extra-ocular movements intact, pupils equal and reactive to light bilaterally, mucous membranes moist. Cardiovascular: Heart regular rate and rhythm Chest: Able to complete full sentences, no retractions, no tachypnea Abdomen: abdomen soft, non-tender, non-distended, no organomegaly Musculoskeletal: Pulses present and equal in all extremities, no peripheral edema Motor: no focal deficits noted Neurological: CN II-XII grossly intact, no focal motor or sensory deficits noted Skin: Intact with no visualized rashes Psych: Normal affect and mood Course Vital Signs 09/13/22 22:54 Temperature 98.3 F Pulse Rate 85 Respiratory 16 Rate Blood Pressure 99/64 O2 Sat by Pulse 98 Oximetry Medical Decision Making - Medical Decision Making Was pt. sent in by a medical professional or institution (, PA, ASSESSMENT ANALYST, urgent care, hospital, or shelter...) When possible be specific @ -No Did you speak to anyone other than the patient for history (EMS, parent, family, police, friend...)? What history was obtained from this source @ -No Did you review nursing and triage notes (agree or disagree)? Why? @ -I reviewed and agree with nursing and triage notes Were old charts reviewed (outside hosp., previous admission, EMS record, old EKG, old radiological studies, urgent care reports/EKG's, shelter records)? Report findings @ -No old charts were reviewed Differential Diagnosis (chest pain, altered mental status, abdominal pain women, abdominal pain men, vaginal bleeding, musculoskeletal, weakness, fever, dyspnea, syncope, headache, dizziness, GI bleed, back pain, seizure, CVA, palpatations, mental health)? @ -Differential Abdominal Pain Women: Appendicitis, Cholecystitis, diverticulosis, ischemic bowel, pancreatitis, hepatitis, UTI, gastroenteritis, AAA, incarcerated hernia, bowel obstruction, constipation, inflammatory bowel, hepatitis, peptic ulcer disease, splenic infarction, perforated viscus, vulvitis, ovarian torsion, PID, kidney stone, placenta abruption, this is not meant to be an all-inclusive list EKG interpreted by me (3pts min.). @ -My EKG interpretation: Ventricular rate 86, WI interval to 19, QRS 90, QTc 43. No WI prolongation, no QTC prolongation, no ST or T-wave changes noted. Overall, this EKG is unremarkable X-rays interpreted by me (1pt min.). @ -None done CT interpreted by me (1pt min.). @ -None done U/S interpreted by me (1pt. min.). @ -None done What testing was considered but not performed or refused? (CT, X-rays, U/S, labs)? Why? @ -None What meds were considered but not given or refused? Why? @ -None Did you discuss the management of the patient with other professionals (professionals i.e. , PA, ASSESSMENT ANALYST, lab, RT, psych nurse, social service worker, opening machine cleaner, teacher, chief creative officer, correctional case manager)? Give summary @ -No Was smoking cessation discussed for >3mins.? @ -No Was critical care preformed (if so, how long)? @ -No Were there social determinants of health that impacted care today? How? (Homelessness, low income, unemployed, alcoholism, drug addiction, transportation, low edu. Level, literacy, decrease access to med. care, [facility], rehab)? @ -No Was there de-escalation of care discussed even if they declined (Discuss DNR or withdrawal of care, Hospice)? DNR status @ -No What co-morbidities impacted this encounter? (DM, HTN, Smoking, COPD, CAD, Cancer, CVA, ARF, Chemo, Hep., AIDS, mental health diagnosis, sleep apnea, morbid obesity)? @ -None Was patient admitted / discharged? Hospital course, mention meds given and route, prescriptions, significant lab abnormalities, going to OR and other pertinent info. @ -42 Year-old female presents emergency Department with nausea vomiting and migraine. Vital signs stable. She has no neurologic deficits. Patient vomiting at the bedside. Patient given headache sports book server emergency department for several hours. Reevaluated bedside 1:48 AM plan to be stable condition. Her symptoms have resolved. Patient we will for discharge. Undiagnosed new problem with uncertain prognosis? @ -No Drug Therapy requiring intensive monitoring for toxicity (Heparin, Nitro, Insulin, Cardizem)? @ -No Were any procedures done? @ -No Diagnosis/symptom? Acute, or Chronic, or Acute on Chronic? Uncomplicated (without systemic symptoms) or Complicated (systemic symptoms)? @ -1. Migraine headache Side effects of treatment? @ -No Exacerbation, Progression, or Severe Exacerbation? @ -No Poses a threat to life or bodily function? How? (Chest pain, USA, PA, pneumonia, PE, COPD, DKA, ARF, appy, cholecystitis, CVA, Diverticulitis, Homicidal, Suicidal, threat to staff... and all critical care pts) @ -No - Lab Data Result diagrams: 09/13/22 23:43 09/13/22 23:43 Lab Results 09/13/22 09/13/22 Range/Units 23:43 23:43 WBC 13.6 H (3.8-10.6) k/uL RBC 4.56 (3.80-5.40) m/uL Hgb 14.3 (11.4-16.0) gm/dL Hct 43.3 (34.0-46.0) % MCV 95.0 (80.0-100.0) fL MCH 31.4 (25.0-35.0) pg MCHC 33.1 (31.0-37.0) g/dL RDW 12.8 (11.5-15.5) % Plt Count 229 (150-450) k/uL MPV 9.2 Neutrophils % 77 % Lymphocytes % 16 % Monocytes % 3 % Eosinophils % 3 % Basophils % 0 % Neutrophils # 10.4 H (1.3-7.7) k/uL Lymphocytes # 2.1 (1.0-4.8) k/uL Monocytes # 0.5 (0-1.0) k/uL Eosinophils # 0.4 (0-0.7) k/uL Basophils # 0.0 (0-0.2) k/uL Sodium 139 (137-145) mmol/L Potassium 3.5 (3.5-5.1) mmol/L Chloride 110 H (98-107) mmol/L Carbon Dioxide 17 L (22-30) mmol/L Anion Gap 12 mmol/L BUN 11 (7-17) mg/dL Creatinine 0.68 (0.52-1.04) mg/dL Est GFR (CKD-EPI)AfAm >90 (>60 ml/min/1.73 sqM) Est GFR (CKD-EPI)NonAf >90 (>60 ml/min/1.73 sqM) Glucose 130 H (74-99) mg/dL Calcium 9.5 (8.4-10.2) mg/dL Disposition Clinical Impression: Migraine Disposition: HOME SELF-CARE Condition: Good Instructions (If sedation given, give patient instructions): Acute Nausea and Vomiting (ED) Is patient prescribed a controlled substance at d/c from ED?: No Referrals: Melisa Bryan MD [Primary Care Provider] - 1-2 days Time of Disposition: 01:49
[2022-09-13 23:58] LABS: Basophils % (A) 0 %; Eosinophils # (A) 0.4 k/uL (0-0.7); Eosinophils % (A) 3 %; HCT 43.3 % (34.0-46.0); HGB 14.3 gm/dL (11.4-16.0); Lymphocytes # (A) 2.1 k/uL (1.0-4.8); Lymphocytes % (A) 16 %; MCH 31.4 pg (25.0-35.0); MCHC 33.1 g/dL (31.0-37.0); Mean Platelet Volume 9.2; Monocytes # (A) 0.5 k/uL (0-1.0); Monocytes % (A) 3 %; Neutrophils # (A) 10.4 k/uL (1.3-7.7); Neutrophils % (A) 77 %; Platelet Count 229 k/uL (150-450); RBC 4.56 m/uL (3.80-5.40); RDW 12.8 % (11.5-15.5); WBC 13.6 k/uL (3.8-10.6)
[2022-09-14 00:12] LABS: African American GFR (CKD) >90 (>60 ml/min/1.73 sqM); Anion Gap 12 mmol/L; Blood Urea Nitrogen 11 mg/dL (7-17); Calcium 9.5 mg/dL (8.4-10.2); Carbon Dioxide 17 mmol/L (22-30); Chloride 110 mmol/L (98-107); Glucose 130 mg/dL (74-99); Non-African American GFR(CKD) >90 (>60 ml/min/1.73 sqM); Potassium 3.5 mmol/L (3.5-5.1); Sodium 139 mmol/L (137-145)
[2022-09-14 02:13] VITALS: BP 127/80; PULSE 80; RESP 18
== END 2022-09-14 02:24 | disposition home or self-care (01) ==
LOC: EC 22:52
DX: G43.909 Migraine, unspecified, not intractable, without status migrainosus (principal); F17.200 Nicotine dependence, unspecified, uncomplicated; F12.90 Cannabis use, unspecified, uncomplicated; Z88.5 Allergy status to narcotic agent; Z90.49 Acquired absence of other specified parts of digestive tract; Z86.59 Personal history of other mental and behavioral disorders
CPT/HCPCS: 36415; 93005; 80048; 85025; 99284; 96374; 96375 ×2; 96361; J1200; J2405; J1885

== ENCOUNTER → 2023-07-29 | Outpatient (CLI) | payer MEDICARE, OTHER ==
--- NOTE | 2023-07-29 10:28 | US ---
EXAMINATION TYPE: US abdomen complete DATE OF EXAM: 07/29/2023 COMPARISON: NONE CLINICAL INDICATION: Female, 42 years old with history of Z98.890 OTHER SPECIFIED POSTPROCEDURAL STAT ES; Cholecystectomy 2000, hernia repair 2019, pain since hernia repair TECHNIQUE: Multiple sonographic images of the abdomen are obtained. FINDINGS: EXAM MEASUREMENTS: Liver Length: 22.0 cm Gallbladder Wall: Surgically absent CBD: 0.4 cm Spleen: 11.5 cm Right Kidney: 11.1 x 4.6 x 4.9 cm Left Kidney: 10.3 x 4.8 x 4.8 cm STRATEGIC PLANNING MANAGER NOTES: large habitus Pancreas: wnl Liver: enlarged and difficult to penetrate Gallbladder: Surgically absent Evidence for sonographic Art's sign: no CBD: wnl Spleen: wnl Right Kidney: wnl Left Kidney: wnl Upper IVC: wnl Abd Aorta: wnl The liver is homogenous. The intrahepatic portion of the IVC and proximal abdominal aorta are within normal limits. There is no evidence of cholelithiasis. Common bile duct is unremarkable. The visu alized portions of the pancreas are homogenous. The spleen is unremarkable. Kidneys are symmetric a nd free of hydronephrosis. No renal lesions are seen. IMPRESSION: Hepatic steatosis without evidence for suspicious mass or acute process.
== END | disposition home or self-care (01) ==
LOC: RADUSWWP 09:46
PROVIDERS: ATTEND Family Medicine
DX: K76.0 Fatty (change of) liver, not elsewhere classified (principal); Z98.890 Other specified postprocedural states; Z90.49 Acquired absence of other specified parts of digestive tract
CPT/HCPCS: 76700

== ENCOUNTER → 2023-10-02 | Outpatient (CLI) | payer MEDICARE, OTHER ==
--- NOTE | 2023-10-02 18:23 | CT ---
EXAMINATION TYPE: CT chest wo con CT DLP: 800 mGycm, Automated exposure control for dose reduction was used. DATE OF EXAM: 10/02/2023 4:07 PM COMPARISON: CT chest 09/03/2022, 03/05/2022, 10/10/2021 CLINICAL INDICATION:Female, 43 years old with history of J98.4 OTHER DISORDERS OF LUNG; PHH, f/u nodu les TECHNIQUE: Multiple axial images were obtained through the chest without IV contrast. Lack of IV or o ral contrast limits evaluation of solid and hollow organ viscera. . Coronal and sagittal reformats re viewed. FINDINGS: LUNGS/ PLEURA: No pleural effusion, pneumothorax, or focal consolidation. Scattered tiny pulmonary no dules are demonstrated. Stable 2 to 3 mm scattered nodules demonstrated within the right anterior mi dline (series 4, 26). Stable 4 to 5 mm pulmonary nodules within the left mid lung (series 4, image 22 and 23). Stable lingular 5.8 mm pulmonary nodule (series 4, image 32). Stable left lower lobe 3.3 mm pulmonary nodule (series 4, image 37). Stable right lower lobe 3.3 mm pulmonary nodule (series 4, im age 22). No definitive new or enlarging pulmonary nodules. AIRWAY: Patent and unremarkable.. HEART: The heart is mildly increased in size.. No pericardial effusion. MEDIASTINUM: No gross evidence of adenopathy. VASCULATURE: No aortic aneurysm. MUSCULOSKELETAL: No acute osseous abnormalities SOFT TISSUES/LYMPH NODES: Unremarkable. LOWER NECK: No significant findings. UPPER ABDOMEN: Postcholecystectomy changes. Liver is diffusely hypoattenuating again consistent with steatosis. IMPRESSION: Stable few scattered small pulmonary nodules measuring 5 mm or less. No new or enlarging pulmonary no dules. Stability since 2021 suggests benign nodules.
== END | disposition home or self-care (01) ==
LOC: RADCTMAIN 15:50
PROVIDERS: ATTEND Internal Medicine Hematology & Oncology
DX: J98.4 Other disorders of lung (principal); R91.8 Other nonspecific abnormal finding of lung field; D72.829 Elevated white blood cell count, unspecified; R51.9 Headache, unspecified; E78.5 Hyperlipidemia, unspecified
CPT/HCPCS: 71250

== ENCOUNTER → 2023-11-12 | Outpatient (CLI) | payer MEDICARE, OTHER ==
--- NOTE | 2023-12-21 09:10 | XR ---
EXAMINATION TYPE: XR cervical spine limited DATE OF EXAM: 12/21/2023 COMPARISON: 11/28/2020 HISTORY: Surgical follow-up TECHNIQUE: Three views are submitted. FINDINGS: The odontoid is intact. There are no compression deformities. Postsurgical changes are seen compatib le with ACDF C3-C7. Alignment near-anatomic 1 anterolisthesis is stable scarring in the cervical spin al surgery. Multilevel facet arthropathy. Increased soft tissue density in the region of the epiglott is. IMPRESSION: 1. Postsurgical change appears in anatomic alignment. 2. Increased soft tissue fullness involving the region of the epiglottis. Consider correlation clinic ally and if necessary with soft tissue neck x-ray. [facility], , 12/21/2023 9:08 AM
== END | disposition home or self-care (01) ==
LOC: RADXRMAIN 12:27
PROVIDERS: ATTEND Neurological Surgery
DX: J38.7 Other diseases of larynx (principal); Z98.890 Other specified postprocedural states
CPT/HCPCS: 72040

== ENCOUNTER 2023-12-08 12:03 | Emergency (ER) | payer MEDICARE, OTHER ==
[2023-12-08 12:21] VITALS: BP 116/87; PULSE 89; RESP 20; TEMP 98.3
--- NOTE | 2023-12-08 12:37 | ED ---
Recheck HPI - General Chief Complaint: Recheck/Abnormal Lab/Rx Stated Complaint: Post-op comp Time Seen by Provider: 12/08/23 12:22 Source: patient, RN notes reviewed Mode of arrival: ambulatory Limitations: no limitations - History of Present Illness Initial Comments: Patient is a 43-year-old female presented to the ER with a chief complaint of postop completion. Patient underwent cervical spine fusion with an anterior approach in [place] on October 29, 2023. She states past couple days she has noted some surrounding redness to her incision line. She does report some of the dissolvable sutures have been visible as well. She does report recent drainage. She states that drainage is clear to yellow in nature. Denies any fevers, chills, nausea, vomiting, chest pain, shortness of breath or other complaints. - Related Data Home Medications Medication Instructions Recorded Confirmed Cholecalciferol [Vitamin D3 (25 5,000 unit PO DAILY 11/14/19 11/21/19 Mcg = 1000 Iu)] Cyanocobalamin (Vitamin B-12) 1,000 mcg PO DAILY 11/14/19 11/21/19 [Vitamin B-12] Cyclobenzaprine [Flexeril] 10 mg PO BID PRN 11/14/19 11/21/19 Ibuprofen [Motrin] 800 mg PO BID PRN 11/14/19 11/21/19 Turmeric Root Extract [Turmeric] 500 mg PO DAILY 11/14/19 11/21/19 busPIRone HCL 10 mg PO BID 11/14/19 11/21/19 Previous Rx's Medication Instructions Recorded Docusate [Colace] 100 mg PO BID #20 capsule 11/21/19 HYDROcodone/APAP 5-325MG [Yermo 1 tab PO Q6HR PRN #10 tab 11/21/19 5-325] metroNIDAZOLE [Flagyl] 500 mg PO BID 7 Days #14 tab 03/05/22 Cephalexin [Keflex] 500 mg PO Q6HR #40 cap 12/08/23 Sulfamethox-Tmp 800-160Mg [Bactrim 1 each PO Q12HR #20 tab 12/08/23 Ds] Allergies Allergy/AdvReac Type Severity Reaction Status Date / Time codeine AdvReac STOMACH Verified 12/08/23 12:21 PAIN Review of Systems ROS Statement: Those systems with pertinent positive or pertinent negative responses have been documented in the HPI. ROS Other: All systems not noted in ROS Statement are negative. Past Medical History Past Medical History: Cancer, Fibromyalgia, GERD/Reflux, Osteoarthritis (OA) Additional Past Medical History / Comment(s): lyme disease, DDD, hiatal hernia, IBS, CERVICAL CA, BELLS PALSY VS TIA 2013-NOT SURE WHICH ONE-NO RESIDUAL SYMPTOMS. PT STATES THAT SHE HYPERVENTILATES AND GETS BRONCHIAL SPASMS WHEN STRESSED History of Any Multi-Drug Resistant Organisms: None Reported Past Surgical History: Back Surgery, Cholecystectomy, Hysterectomy, Orthopedic Surgery, Tonsillectomy Additional Past Surgical History / Comment(s): left third didgit, left knee SX, HAVING EGD 11/16/19, CERVICAL SX Past Anesthesia/Blood Transfusion Reactions: No Reported Reaction Past Psychological History: Depression Smoking Status: Current every day smoker Past Alcohol Use History: None Reported Past Drug Use History: Marijuana - Past Family History Mother Family Medical History: No Reported History General Exam Limitations: no limitations General appearance: alert, in no apparent distress ENT exam: Present: normal exam, mucous membranes moist Neck exam: Present: full ROM, other (4 cm horizontal incision to right anterior neck. 3 blue fibrous appearing to be sutures in place. There is mild surrounding erythema with no purulent drainage present.) Respiratory exam: Present: normal lung sounds bilaterally. Absent: respiratory distress, wheezes, rales, rhonchi, stridor Cardiovascular Exam: Present: regular rate, normal rhythm, normal heart sounds. Absent: systolic murmur, diastolic murmur, rubs, gallop, clicks Extremities exam: Present: normal inspection, full ROM, normal capillary refill. Absent: tenderness, pedal edema, joint swelling, calf tenderness Neurological exam: Present: alert, oriented X3, CN II-XII intact Skin exam: Present: warm, dry, intact, normal color. Absent: rash Course Vital Signs 12/08/23 12:18 Temperature 98.3 F Pulse Rate 89 Respiratory 20 Rate Blood Pressure 116/87 O2 Sat by Pulse 97 Oximetry Medical Decision Making - Medical Decision Making Was pt. sent in by a medical professional or institution (, PA, HAND SPRAY OPERATOR, urgent care, hospital, or intermediate...) When possible be specific @ -No Did you speak to anyone other than the patient for history (EMS, parent, family, police, friend...)? What history was obtained from this source @ -No Did you review nursing and triage notes (agree or disagree)? Why? @ -I reviewed and agree with nursing and triage notes Were old charts reviewed (outside hosp., previous admission, EMS record, old EKG, old radiological studies, urgent care reports/EKG's, intermediate records)? Report findings @ -No old charts were reviewed Differential Diagnosis (chest pain, altered mental status, abdominal pain women, abdominal pain men, vaginal bleeding, weakness, fever, dyspnea, syncope, headache, dizziness, GI bleed, back pain, seizure, CVA, palpatations, mental health, musculoskeletal)? @ -Cellulitis, abscess, wound dehiscence... this list is not meant to be all inclusive EKG interpreted by me (3pts min.). @ -None done X-rays interpreted by me (1pt min.). @ -None done CT interpreted by me (1pt min.). @ -None done U/S interpreted by me (1pt. min.). @ -None done What testing was considered but not performed or refused? (CT, X-rays, U/S, labs)? Why? @ -None What meds were considered but not given or refused? Why? @ -None Did you discuss the management of the patient with other professionals (professionals i.e. , PA, HAND SPRAY OPERATOR, lab, RT, psych nurse, social services counselor, pipe organ mechanic apprentice, teacher, chief procurement officer, rn case management)? Give summary @ -No Was smoking cessation discussed for >3mins.? @ -No Was critical care preformed (if so, how long)? @ -No Were there social determinants of health that impacted care today? How? (Homelessness, low income, unemployed, alcoholism, drug addiction, transportation, low edu. Level, literacy, decrease access to med. care, [facility], rehab)? @ -No Was there de-escalation of care discussed even if they declined (Discuss DNR or withdrawal of care, Hospice)? DNR status @ -No What co-morbidities impacted this encounter? (DM, HTN, Smoking, COPD, CAD, Cancer, CVA, ARF, Chemo, Hep., AIDS, mental health diagnosis, sleep apnea, morbid obesity)? @ -None Was patient admitted / discharged? Hospital course, mention meds given and route, prescriptions, significant lab abnormalities, going to OR and other pertinent info. @ -Discharge. 43-year-old female presented to ER with a chief complaint of stab complication. Patient underwent cervical spinal fusion anterior approach on 10/29/23 in [place], [place]. History and physical exam completed. Vitals within normal limits. Exam remarkable for a 4 cm healing surgical incision to right anterior neck. There is mild surrounding erythema to lateral aspect concerning of infection. No drainage present. No wound dehiscence. 3 blue fibrous material string coming from incision these are believed to be sutures. Sutures attempted to be removed but removal was met with resistance and they were not removed. Patient will be started on Keflex and Bactrim for infection. Advised close follow-up with his surgeon for further removal and evaluation of infection and sutures. Strict return parameters discussed. Patient discharged in stable condition with follow-up with spine surgeon. Patient verbally expressed understanding and agreement with care plan. Case discussed with ED attending, Dr. Martinez. Undiagnosed new problem with uncertain prognosis? @ -No Drug Therapy requiring intensive monitoring for toxicity (Heparin, Nitro, Insulin, Cardizem)? @ -No Were any procedures done? @ -No Diagnosis/symptom? @ -Incisional infection Acute, or Chronic, or Acute on Chronic? @ -Acute Uncomplicated (without systemic symptoms) or Complicated (systemic symptoms)? @ -Uncomplicated Side effects of treatment? @ -No Exacerbation, Progression, or Severe Exacerbation? @ -No Poses a threat to life or bodily function? How? (Chest pain, [place], [place], pneumonia, PE, COPD, DKA, ARF, appy, cholecystitis, CVA, Diverticulitis, Homicidal, Suicidal, threat to staff... and all critical care pts) @ -No Disposition Clinical Impression: Infected incision Disposition: HOME SELF-CARE Condition: Stable Instructions (If sedation given, give patient instructions): Care For Your Stitches (ED) Additional Instructions: Complete full course of antibiotics. Follow-up with surgeon in the next 1 to 2 days. Return to the ER for any new or worsening concerns. Prescriptions: Sulfamethox-Tmp 800-160Mg [Bactrim Ds] 1 each PO Q12HR #20 tab Cephalexin [Keflex] 500 mg PO Q6HR #40 cap Is patient prescribed a controlled substance at d/c from ED?: No Referrals: Melisa Bryan MD [Primary Care Provider] - 1-2 days Time of Disposition: 12:38
== END 2023-12-08 13:01 | disposition home or self-care (01) ==
LOC: EC 12:03
DX: Z48.89 Encounter for other specified surgical aftercare
CPT/HCPCS: 99283

== ENCOUNTER → 2023-12-16 | Outpatient (CLI) | payer MEDICARE, OTHER ==
--- NOTE | 2023-12-28 20:58 | CT ---
EXAMINATION TYPE: CT abdomen pelvis w con DATE OF EXAM: 12/16/2023 COMPARISON: Right upper quadrant pain INDICATION: RUQ pain. DLP: 2099.7 mGycm, Automated exposure control for dose reduction was used. CONTRAST: 100ml mL of Isovue 300. Study performed with Oral Contrast TECHNIQUE: Axial images were obtained from above the diaphragm to the pubic rami in the axial plane a t 5 mm thick sections. Reconstructed images are reviewed on the computer in the coronal plane. FINDINGS: Limited CT sections are obtained the lung bases. The lung bases are clear. CT ABDOMEN: Liver: Normal Spleen: Normal. Splenules are present. Pancreas: Normal Adrenal glands: The adrenal glands are normal. Gallbladder: Surgically absent. Kidneys: No masses are evident. No hydronephrosis is present. No cysts are present. Delayed images were obtained through the kidneys, which remain unremarkable. Aorta: Minimal Vascular calcification is within the aorta. Inferior vena cava: Normal. CT PELVIS: Loops of bowel within the abdomen and pelvis are normal. There are loops of bowel which are incom pletely distended or lack oral contrast limiting their evaluation. Appendix: Normal as visualized. Urinary bladder: Normal. Genitourinary structures: Uterus and the left ovary are not identified. Right ovary may be present me asuring 2.4 cm. Osseous structures: No suspicious lytic or sclerotic lesions. IMPRESSION: 1. No suspicious acute changes [facility], , 12/28/2023 8:55 PM
== END | disposition home or self-care (01) ==
LOC: RADCTMAIN 15:15
PROVIDERS: ATTEND Family Medicine
DX: R10.11 Right upper quadrant pain (principal); Z98.890 Other specified postprocedural states; Z87.19 Personal history of other diseases of the digestive system
CPT/HCPCS: 74177; Q9967

== ENCOUNTER 2023-12-29 06:08 | Day surgery (SDC) | payer MEDICARE, OTHER ==
[2023-12-28 08:27] VITALS: BMI 39.8
[~2023-12-29 06:08] MED LIST changes: -ACETAMINOPHEN TAB 500 MG TAB PO ONE; -DEXAMETHASONE SOD PHOSPHATE 10 MG/ML 1 ML VIAL IV ONE; -HEPARIN SODIUM,PORCINE 5,000 UNIT/ML 1 ML VIAL SQ ONE; -ONDANSETRON 4 MG/2 ML VIAL IVP ONE; -SCOPOLAMINE 1.5MG/72HR PATCH TRANSDERM ONE
[2023-12-29] MEDS: IV FLUID CONTINUATION 1,000 ML IV ONE (06:36)
[2023-12-29 06:47] VITALS: RESP 16; TEMP 97
[2023-12-29] MEDS: ONDANSETRON 4 MG/2 ML VIAL IVP STA (06:50)
[2023-12-29] MEDS: LACTATED RINGERS 1,000 ML IV SCH (06:50)
[2023-12-29] MEDS ORDERED: PROPOFOL 10 MG/ML 20 ML VIAL IV ONE (07:03)
--- NOTE | 2023-12-29 07:25 | P.PCN ---
Date of Procedure: 12/29/23 Procedure(s) Performed: Brief history: Patient is a pleasant 43-year-old white female scheduled for an elective upper endoscopy as well as colonoscopy as a part of evaluation of abdominal pain associate with intermittent nausea vomiting and diarrhea for the last several years duration. Her symptoms are progressively getting worse in the last 6 months Procedure performed: Esophagogastroduodenoscopy with biopsy Colonoscopy with biopsy Preoperative diagnosis: Abdominal pain, intermittent nausea vomiting Chronic diarrhea [place]est[place]: [facility] [place] Procedure: After informed consent was obtained from the patient was brought into the endoscopy unit and IV sedation was administered by anesthesia under continuous monitoring. Initially upper endoscopy was done. The Olympus GF 160 video endoscope was inserted inserted into the mouth and esophagus intubated without any difficulty and was gradually advanced into the stomach and duodenum and carefully examined. The bulb and second part of the duodenum appeared normal. Biopsies were done from the duodenum rule out celiac disease. The scope was then withdrawn into the stomach adequately insufflated with air and upon careful examination the antrum had mild gastritis and biopsies were done from this area. Body, cardia and fundus appeared normal. The scope was then withdrawn into the esophagus. The GE junction was located at 40 cm to the incisors. It appeared regular with no erythema erosions or ulcerations. Rest of the esophagus appeared normal. Patient tolerated the procedure well. At this time the patient continued to remain sedation. Initial digital rectal examination revealed a large edematous external skin tag.. Olympus CF 160 video colonoscope was then inserted into the rectum and gradually advanced to the cecum without any difficulty. Careful examination was performed as the scope was gradually being withdrawn. The prep was excellent. The cecum, ascending colon, transverse colon, descending colon, sigmoid colon and rectum appeared normal. Biopsies were done from the ascending and descending colon to rule out microscopic/collagenous colitis. Retroflexion was performed in the rectum and no lesions were noted. Patient tolerated the procedure well. Impression: 1. Upper endoscopy with mild antral gastritis but no evidence of esophagitis or peptic ulcer disease 2. Colonoscopy was within normal limits with no evidence of colorectal neoplasia except for large external skin tag. Recommendations: Findings of this examination were discussed with the patient as well as her family. She was advised to follow-up with the biopsy results. Follow-up in the office in 2 to 3 weeks. Repeat colonoscopy in 10 years.
[2023-12-29 07:53] VITALS: BP 125/85; PULSE 79
== END 2023-12-29 08:08 | disposition home or self-care (01) ==
LOC: ORWHC2ENDO 06:08
PROVIDERS: ATTEND Internal Medicine Gastroenterology
DX: K29.50 Unspecified chronic gastritis without bleeding (principal); K31.89 Other diseases of stomach and duodenum; K64.4 Residual hemorrhoidal skin tags; R19.4 Change in bowel habit; R19.7 Diarrhea, unspecified; Z79.899 Other long term (current) drug therapy
CPT/HCPCS: 88305; 88342; 88341; 45380; 43239; J2405; J2704

== ENCOUNTER → 2024-01-11 | Outpatient (CLI) | payer MEDICARE, OTHER ==
--- NOTE | 2024-01-11 14:45 | CT ---
EXAMINATION TYPE: CT cervical spine wo con DATE OF EXAM: 01/11/2024 COMPARISON: None HISTORY: Tightness in throat post sx Aug ACDF C3-7 CT DLP: 737.10 mGycm Automated exposure control for dose reduction was used. TECHNIQUE: CT scan of the cervical spine is obtained without contrast, axial images are obtained, sa gittal and coronal reformatted images are also reviewed. Findings: The craniovertebral junction relationships and prevertebral soft tissues are normal. There are postsurgical changes of interbody disc and anterior metallic fusion of C3-C7. The cervical alignment is normal. There is no acute fracture. There is no bony compromise of the spinal canal or neural foramina. IMPRESSION: Postsurgical changes of interbody and anterior metallic fusion of C3-C7. There is no malalignment of the cervical segments and no acute fractures. No bony compromise of the spinal canal. The prevertebra l soft tissues are within normal limits. [facility], Workstation: [email or web address] 01/11/2024 2:43 PM
== END | disposition home or self-care (01) ==
LOC: RADCTMAIN 14:17
PROVIDERS: ATTEND Neurological Surgery
DX: Z98.1 Arthrodesis status (principal)
CPT/HCPCS: 72125

== ENCOUNTER → 2024-07-19 | Outpatient (CLI) | payer MEDICARE, OTHER ==
--- NOTE | 2024-07-19 08:48 | US ---
EXAMINATION TYPE: US liver DATE OF EXAM: 07/19/2024 COMPARISON: CT 01/11/2024 US 07/29/2023 CLINICAL INDICATION: Female, 43 years old with history of K76.0 FATTY (CHANGE OF) LIVER, NOT ELSEWHER E CLASS; Hx Fatty Liver and cholecystectomy. RUQ pain since hernia surgery in 2019 and diarrhea TECHNIQUE: Grayscale and color Doppler imaging of the right upper quadrant was performed. FINDINGS: EXAM MEASUREMENTS: Liver Length: 23.2 cm Gallbladder Wall: Surgically absent cm CBD: Unable to identify cm Right Kidney: 12.1 x 5.5 x 5.2 cm NETWORK CABLE INSTALLER NOTES: Pancreas: Tail obscured by overlying bowel gas Liver: Increased attenuation, decreased visualization of vessels suggestive of fatty infiltrate; ? L esion vs tissue = 5.2 x 3.2 x 6.5 cm Gallbladder: Surgically absent CBD: Obscured by overlying bowel gas Right Kidney: wnl The visualized portion of the pancreas is unremarkable. The liver demonstrates diffusely increased ec hogenicity with questionable lesion measuring up to 6.5 cm in the inferior left hepatic lobe. Gallbla dder is surgically absent. The common bile duct is obscured by overlying bowel gas. The right kidney demonstrates no hydronephrosis, solid mass, or shadowing calculus. IMPRESSION: 1. Hepatic steatosis with questionable lesion within the inferior left hepatic lobe. Recommend furth er evaluation with CT or MRI abdomen (liver mass protocol). 2. Post cholecystectomy changes. [facility], , 07/19/2024 8:45 AM
[2024-07-19 15:03] LABS: ALT 15 U/L (8-44); AST 15 U/L (13-35); Albumin 4.2 g/dL (3.8-4.9); Albumin/Globulin Ratio 1.56 Ratio (1.60-3.17); Alkaline Phosphatase 98 U/L (41-126); BUN/Creat Ratio 28.33 Ratio (12.00-20.00); Basophils # (A) 0.09 X 10*3/uL (0.00-0.10); Basophils % (A) 0.9 %; Calcium 9.3 mg/dL (8.7-10.3); Chloride 104 mmol/L (96-109); Eosinophils # (A) 0.63 X 10*3/uL (0.04-0.35); Eosinophils % (A) 6.5 %; Globulin 2.7 g/dL (1.6-3.3); Glucose 112 mg/dL (70-110); HCT 40.3 % (37.2-46.3); Lymphocytes % (A) 33.2 %; MCHC 32.3 g/dL (32.0-37.0); MCV 96.2 FL (80.0-97.0); Mean Platelet Volume 11.9 FL (9.5-12.2); Monocytes # (A) 0.62 X 10*3/uL (0.20-1.00); Monocytes % (A) 6.4 %; NRBC Per 100 WBC 0 X 10*3/uL (0.00-0.01); Neutrophils # (A) 5.07 X 10*3/uL (1.80-7.70); Neutrophils % (A) 52.7 %; Platelet Count 239 X 10*3/uL (140-440); Potassium 4.5 mmol/L (3.5-5.5); RBC 4.19 X 10*6/uL (4.10-5.20); RDW 12.5 % (11.5-14.5); Sodium 139 mmol/L (135-145); Total Bilirubin <0.2 mg/dL (0.3-1.2); Total Protein 6.9 g/dL (6.2-8.2); WBC 9.64 X 10*3/uL (4.50-10.00)
[2024-07-19 15:58] LABS: Erythrocyte Sedimentation Rate 18 mm/Hr (0-20)
== END | disposition home or self-care (01) ==
LOC: RADUSWWP 08:18
PROVIDERS: ATTEND Internal Medicine Gastroenterology
DX: K76.0 Fatty (change of) liver, not elsewhere classified (principal); K58.0 Irritable bowel syndrome with diarrhea; Z90.49 Acquired absence of other specified parts of digestive tract
CPT/HCPCS: 76705; 80053; 85025; 85652; 86140

== ENCOUNTER → 2024-10-04 | Outpatient (CLI) | payer MEDICARE, OTHER ==
--- NOTE | 2024-10-04 11:53 | CT ---
EXAMINATION TYPE: CT chest wo con DATE OF EXAM: 10/04/2024 11:32 AM COMPARISON: 10/02/2023. CLINICAL INDICATION: Female, 44 years old with history of J98.4 OTHER DISORDERS OF LUNG; [facility], FORMER SMOKER TECHNIQUE: Multiple axial images were obtained through the chest. Sagittal and coronal reformats were created for review. MIP was performed on a separate workstation. Contrast used: mL of (None if empty) Oral contrast used: (None if empty) CT DLP: 513.6 mGycm, Automated exposure control for dose reduction was used. FINDINGS: LUNGS/ PLEURA: 6 mm left lingula pulmonary nodule series 3 image 33, stable 3 mm Left upper lobe pulmonary nodules series 3 image 23 3 mm right middle lobe series 3 image 31, stable No focal consolidation, pneumothorax or pleural effusion. AIRWAY: Patent and unremarkable. HEART: Size within normal limits. No significant coronary artery calcifications. MEDIASTINUM: No gross evidence of adenopathy. VASCULATURE: No aortic aneurysm. MUSCULOSKELETAL: No acute osseous abnormalities SOFT TISSUES/LYMPH NODES: Anterior medial masslike opacity in the left breast has more masslike appea luke series 6 image 15. LOWER NECK: No significant findings. UPPER ABDOMEN: Cholecystectomy clips in the right upper quadrant. IMPRESSION: 1. Stable pulmonary nodules. No new or enlarging pulmonary nodules. Consider yearly low-dose lung ca ncer screening. 2. New left inferior medial breast masslike opacity which measures fluid density. Dedicated mammogra [facility] workup recommended. [facility], , 10/04/2024 11:50 AM
== END | disposition home or self-care (01) ==
LOC: RADCTMAIN 10:56
PROVIDERS: ATTEND Internal Medicine Hematology & Oncology
DX: J98.4 Other disorders of lung (principal); D72.829 Elevated white blood cell count, unspecified; R51.9 Headache, unspecified; E78.5 Hyperlipidemia, unspecified; R91.8 Other nonspecific abnormal finding of lung field; Z87.891 Personal history of nicotine dependence
CPT/HCPCS: 71250

== ENCOUNTER → 2024-10-14 | Outpatient (CLI) | payer MEDICARE, OTHER ==
--- NOTE | 2024-10-14 14:27 | US ---
EXAMINATION TYPE: US thyroid st tissue head/neck DATE OF EXAM: 10/14/2024 COMPARISON: NONE CLINICAL INDICATION: Female, 44 years old with history of E89.0 PARTIAL THYROIDECTOMY; left thyroidec brittany, no issues currently TECHNIQUE: Grayscale and color Doppler imaging of the thyroid gland. FINDINGS: GLAND SIZE: Right Lobe: 4.5 x 1.7 x 1.9 cm Overall Parenchyma: homogeneous Left Lobe: Surgically absent Isthmus Thickness: 0.3 cm NODULES RIGHT: # of nodules measured on right: 0 LEFT: Surgically absent ISTHMUS: # of nodules measured in the isthmus: 0 Bilateral neck scanned, no evidence of lymphadenopathy. IMPRESSION: Surgically absent left thyroid gland. No suspicious thyroid nodules or lymphadenopathy. TI-RADS assessment score and recommendation for follow-up based on appropriate scoring and treatment protocols. TR1 Benign No FNA TR2 Not suspicious No FNA TR3: If nodule size is ? 2.5 cm, FNA is recommended. If nodule size is ? 1.5 cm, follow-up imaging at 1, 3, and 5 years is recommended. TR4: If nodule size is ? 1.5 cm, FNA is recommended. If nodule size is ? 1.0 cm, follow-up imaging at 1, 2, 3, and 5 years is recommended. TR5: If nodule size is ? 1.0 cm, FNA is recommended. If nodule size is ? 0.5 cm, annual follow-up for up to 5 years is recommended. TR 1 thyroid nodules have a 0.3 % risk of malignancy. TR 2 thyroid nodules have a 1.5 % risk of malignancy. TR 3 thyroid nodules have a 4.8 % risk of malignancy. TR 4 thyroid nodules have a 9.1 % risk of malignancy. TR 5 thyroid nodules have a 35 % risk of malignancy. [email or web address] [facility], , 10/14/2024 2:24 PM
--- NOTE | 2024-10-14 14:30 | MM ---
Reason for Exam: Clinical finding. Last mammogram was performed 5 year(s) and 10 month(s) ago. Indicated Problems: Lump or thickening of the left side (size 15) for 1 Month(s). Patient History: Menarche at age 10. First Full-Term at age 17. Hysterectomy at age 33. Patient has history of breast feeding. Risk Values: Yahaira 5 year model risk: 0.6%. NCI Lifetime model risk: 6.9%. Prior Study Comparison: 12/22/2018 Bilateral Screening Mammogram, [facility]. 12/22/2018 Left Diagnostic Mammogram, [facility]. 12/22/2018 Left Diagnostic Ultrasound, [facility]. Tissue Density: The breasts are heterogeneously dense, which may obscure small masses. Findings: Analyzed By CAD. There is a mass in the posterior central lower left breast at approximately 6:00 and 15.4 cm from the nipple. Measures approximately 3.5 cm. Ultrasound recommended. Chronic appearing lymph node in the outer margin of the right breast. Large area of asymmetric density in the right breast has increased in size. 11 cm from the nipple. Ultrasound recommended. No suspicious calcifications. Stable benign calcifications. Overall Assessment: Incomplete: need additional imaging evaluation, BI-RAD 0 Management: Diagnostic Breast Ultrasound of both breasts. . Results were given to the patient verbally at the time of exam. Patient should continue monthly self-breast exams. A clinical breast exam by your physician is recommended on an annual basis. This exam should not preclude additional follow-up of suspicious palpable abnormalities. Note on Yahaira scores and lifetime risk: 1. A Yahaira score greater than 3% is considered moderate risk. If this is the case, consider specialist referral to assess eligibility for a risk reducing agent. 2. If overall lifetime risk for the development of breast cancer is 20% or higher, the patient may qualify for future screening with alternating mammogram and breast MRI. [facility], , 10/14/2024 2:27 PM. Electronically signed and approved by: Simón June M.D. Radiologis
--- NOTE | 2024-10-17 07:14 | USB ---
Reason for Exam: Clinical finding. Patient History: Menarche at age 10. First Full-Term at age 17. Hysterectomy at age 33. Patient has history of breast feeding. Risk Values: Yahaira 5 year model risk: 0.6%. NCI Lifetime model risk: 6.9%. Technique: Method: Targeted. Prior Study Comparison: 12/22/2018 Bilateral Screening Mammogram, [facility]. 12/22/2018 Left Diagnostic Mammogram, [facility]. Findings: The area of palpable concern of the left breast, the lower section of the breast of the right breast, the axilla of both breasts and the retroareolar of both breasts were scanned. A limited US of lower half right breast and palpable area of left breast and bilateral axilla and retro-areolar region were reviewed. Approximately 15 cm from the nipple at the 6:00 position within the left breast at the area of palpable abnormality there is a 2.4 x 2.4 x 1.1 cm solid mass. Recommend ultrasound-guided core biopsy. Scanning of the right breast demonstrates no sizable cystic or solid lesion. There is increasing breast tissue noted on mammogram reticular markings 2018 Overall Assessment: Suspicious, BI-RAD 4 Management: Stereotactic Core Biopsy of the right breast. Ultrasound-Guided Core Biopsy of the left breast. A clinical breast exam by your physician is recommended on an annual basis and results should be correlated with mammographic findings. This exam should not preclude additional follow-up of suspicious palpable abnormalities. Results were given to the patient verbally at the time of exam. [facility], , 10/14/2024 3:03 PM. Electronically signed and approved by: Simón June M.D. Radiologis
== END | disposition home or self-care (01) ==
LOC: RADUSWWP 13:44
PROVIDERS: ATTEND Family Medicine
DX: N63.20 Unspecified lump in the left breast, unspecified quadrant (principal); N64.4 Mastodynia; E89.0 Postprocedural hypothyroidism; R92.333 Mammographic heterogeneous density, bilateral breasts; R92.1 Mammographic calcification found on diagnostic imaging of breast; Z87.898 Personal history of other specified conditions
CPT/HCPCS: 76536; 77062; 77066